=== PATIENT | male | born 1940 | race Caucasian/White ===

== ENCOUNTER 2018-02-18 10:09 | Outpatient (CLI) | payer MEDICARE, OTHER ==
--- NOTE | 2018-02-18 12:19 | RAD ---
BARIUM SWALLOW ESOPHAGRAM: HISTORY: Dysphagia. COMPARISON: None. EXPOSURE: 2.3 minutes 13.924 Gy per cm2 FINDINGS: Initial psychometrist chest radiograph demonstrates sternotomy wires. There is slight elongation of the aort a. Normal cardiac silhouette. The pulmonary vessels and hilum are normal. The costophrenic angles are clear. No mass. No consolidation. No pneumothorax or osseous abnormalities. The cervical esophagus has an overall normal course and caliber. In the mid portion of the thoracic esophagus, there is a small esophageal diverticulum. No significa nt barium retention in the diverticulum. No evidence of reflux during intermittent fluoroscopy. IMPRESSION: Mid thoracic esophageal diverticulum. POS: [facility]
== END 2018-02-18 10:10 | disposition home or self-care (01) ==
LOC: RAD 10:09
PROVIDERS: ATTEND Otolaryngology Plastic Surgery within the Head & Neck
DX: R13.13 Dysphagia, pharyngeal phase (principal); K22.5 Diverticulum of esophagus, acquired
CPT/HCPCS: 74220

== ENCOUNTER 2018-05-04 15:06 | Outpatient (CLI) | payer MEDICARE, OTHER ==
[2018-05-04 15:59] LABS: #Basophils 0.1 thou/uL (0.0-0.2); #Eosinphils 0.3 thou/uL (0.0-0.7); #Lymphocytes 3.1 thou/uL (1.20-3.40); #Monocytes 0.7 thou/uL (0.11-0.59); #Neutrophils 3.9 thou/uL (1.40-6.50); %Basophils 1.3 % (0.0-1.0); %Eosinophils 3.2 % (0.0-10.0); %Lymphocytes 38.8 % (21.0-51.0); %Monocytes 8.3 % (0.0-10.0); %Neutrophils 48.4 % (42.0-75.0); Hemoglobin 14.4 g/dL (14.0-18.0); Mean Corpuscular HGB CONC 32.8 g/dL (32.0-36.0); Mean Corpuscular Volume 91.5 fL (78.0-98.0); Mean Platelet Volume 7.3 fL (7.4-10.4); Platelet Count 281 thou/uL (130-400); RBC Distribution Width 12.5 % (11.5-14.5); Red Blood Cell (RBC) Count 4.82 mill/uL (4.70-6.10); White Blood Cell (WBC) Count 8.1 thou/uL (4.8-10.8)
[2018-05-04 16:20] LABS: Anion Gap 9 mmol/L (10-20); BUN (Urea Nitrogen) 20 mg/dL (8.4-25.7); Calc. Creatinine Clearance 0 mL/min (70-130); Calcium 9.7 mg/dL (7.8-10.44); Carbon Dioxide 30 mmol/L (23-31); Chloride 105 mmol/L (98-107); Estimated GFR-MDRD 66; Glucose 115 mg/dL (83-110); Potassium 4.3 mmol/L (3.5-5.1); Sodium 140 mmol/L (136-145)
--- NOTE | 2018-05-05 07:37 | EKG ---
Test Reason : Blood Pressure : / mmHG Vent. Rate : 059 BPM Atrial Rate : 059 BPM P-R Int : 194 ms QRS Dur : 084 ms QT Int : 426 ms P-R-T Axes : 053 -13 023 degrees QTc Int : 421 ms Sinus bradycardia Low voltage QRS Cannot rule out Anterior infarct , age undetermined Poor anterior R wave progression Abnormal ECG When compared with ECG of 05-JUN-2016 07:58, Minimal criteria for Anterior infarct are now Present No significant change was found Confirmed by DR. Venus NG ([id number]) on 05/05/2018 7:37:53 AM Referred By: KATHI Confirmed By:DR. Venus NG
== END 2018-05-04 15:07 | disposition home or self-care (01) ==
LOC: LABBT 15:06
PROVIDERS: ATTEND Orthopaedic Surgery
DX: Z01.818 Encounter for other preprocedural examination (principal); S46.211A Strain of muscle, fascia and tendon of other parts of biceps, right arm, initial encounter
CPT/HCPCS: 80048; 85025; 93005; 93010

== ENCOUNTER 2018-05-07 08:33 | Day surgery (SDC) | payer MEDICARE, OTHER ==
[2018-05-04 15:27] VITALS: BMI 29.5
[2018-05-07] MEDS ORDERED: CEFAZOLIN 2 GM/50 ML BAG ONE (09:06)
[2018-05-07] MEDS ORDERED: Lidocaine 1% (PF) 30 ML VIAL ONE (09:32)
[2018-05-07] MEDS ORDERED: Fentanyl 100 MCG/2 ML VIAL ONE (09:32)
[2018-05-07] MEDS ORDERED: Midazolam HCl 2 mg/2 ml Vial ONE (09:32)
[2018-05-07] MEDS ORDERED: Bupivacaine HCl 0.5%/Epinephrine 1:200,000/PF 30 ml Vial ONE (09:41)
[2018-05-07] MEDS ORDERED: ePHEDrine/0.9% NaCl/PF SYRINGE 50 mg/10 ml ONE (10:23)
[2018-05-07] MEDS ORDERED: Dexamethasone 20 MG/5 ML VIAL ONE (10:23)
[2018-05-07] MEDS ORDERED: PHENYLEPHRINE-NS 100 MCG/ML 10 ML SYRINGE ONE (10:23)
[2018-05-07] MEDS ORDERED: Ondansetron PF 4 MG/2 ML Vial ONE (10:23)
[2018-05-07] MEDS ORDERED: PROPOFOL 200 MG/20 ML VIAL ONE (10:23)
--- NOTE | 2018-05-07 12:35 | OP ---
DATE OF PROCEDURE: 05/07/2018 PREOPERATIVE DIAGNOSIS: Right distal biceps rupture. POSTOPERATIVE DIAGNOSIS: Right distal biceps rupture. SURGEON: Mich Singh M.D. ANESTHESIA: General. BLOOD LOSS: Minimal. SPECIMEN: None. DRAINS: None. COMPLICATIONS: None. TOURNIQUET TIME: 37 minutes. PROCEDURE IN DETAIL: The patient was taken to the operating where general anesthesia was induced. R ight arm was prepped and draped in the usual sterile fashion. After exsanguination, tourniquet was i nflated to 300 mmHg. I made a standard antecubital incision. Dissection was carried down to the [facility]. I found the tendon with some difficulty due to previous retraction. Tendon was prepared for in sertion. Size found to be a size 8. I prepared it with a FiberWire suture in a running SynthorxckSabrix [facility] ion, identified the radial tubercle, freed of soft tissue, placed a 4.5 drill hole across it. Drille d one cortex 8 mm, which was the size of the tendon. Irrigation performed. The Endobutton device wa s passed through the 4.5 mm hole. The tendon was delivered down into the defect. I then tied the biswas tures over the button and then sutured back to the tendon and tied back through the tendon for double repair. Tourniquet was released. Hemostasis was obtained. Irrigation performed. Subcutaneous tis delores closed with 2-0 Vicryl. The skin was closed with cassidy. Sterile dressings applied. The patie nt was placed in a splint. There were no complications.
== END 2018-05-07 13:40 | disposition home or self-care (01) ==
LOC: SDC 08:33
PROVIDERS: ATTEND Orthopaedic Surgery
PROC: 0LM30ZZ Reattachment of Right Upper Arm Tendon, Open Approach (ICD-10-PCS; principal; 2018-05-07)
DX: S46.211A Strain of muscle, fascia and tendon of other parts of biceps, right arm, initial encounter (principal); I10 Essential (primary) hypertension; E78.5 Hyperlipidemia, unspecified; Z87.891 Personal history of nicotine dependence; Z79.82 Long term (current) use of aspirin; Z79.899 Other long term (current) drug therapy; Z95.1 Presence of aortocoronary bypass graft; W20.8XXA Other cause of strike by thrown, projected or falling object, initial encounter
CPT/HCPCS: 24342; C1713; J0670; J1100; J2001; J2250; J2405; J2704; J3010

== ENCOUNTER 2018-09-01 02:10 | Observation (INO) | payer MEDICARE, OTHER ==
[2018-09-01 02:34] LABS: #Basophils 0.1 thou/uL (0.0-0.2); #Eosinphils 0.4 thou/uL (0.0-0.7); #Lymphocytes 4.4 thou/uL (1.20-3.40); #Monocytes 0.6 thou/uL (0.11-0.59); #Neutrophils 3.8 thou/uL (1.40-6.50); %Basophils 0.7 % (0.0-1.0); %Eosinophils 4.5 % (0.0-10.0); %Lymphocytes 47.5 % (21.0-51.0); %Monocytes 6.6 % (0.0-10.0); %Neutrophils 40.7 % (42.0-75.0); Hemoglobin 15.1 g/dL (14.0-18.0); Mean Corpuscular HGB CONC 33.5 g/dL (32.0-36.0); Mean Corpuscular Hemoglobin 30.7 pg (27.0-31.0); Mean Corpuscular Volume 91.7 fL (78.0-98.0); Mean Platelet Volume 7.2 fL (7.4-10.4); Platelet Count 281 thou/uL (130-400); RBC Distribution Width 12.5 % (11.5-14.5); Red Blood Cell (RBC) Count 4.92 mill/uL (4.70-6.10); White Blood Cell (WBC) Count 9.3 thou/uL (4.8-10.8)
[2018-09-01 02:53] LABS: ALT (SGPT) 14 U/L (8-55); AST (SGOT) 19 U/L (5-34); Albumin 3.9 g/dL (3.4-4.8); Alkaline Phosphatase 111 U/L (40-150); Anion Gap 15 mmol/L (10-20); BUN (Urea Nitrogen) 17 mg/dL (8.4-25.7); Bilirubin, Total 0.5 mg/dL (0.2-1.2); Calc. Creatinine Clearance 0 mL/min (70-130); Carbon Dioxide 25 mmol/L (23-31); Chloride 104 mmol/L (98-107); Estimated GFR-MDRD 56; Globulin 3.4 g/dL (2.4-3.5); Glucose 145 mg/dL (83-110); Lipase 14 U/L (8-78); Potassium 3.8 mmol/L (3.5-5.1); Protein, Total 7.3 g/dL (5.8-8.1); Sodium 140 mmol/L (136-145)
[2018-09-01] MEDS ORDERED: Fentanyl 100 MCG/2 ML VIAL ONE (03:30)
[2018-09-01] MEDS ORDERED: Famotidine/PF 20 mg/2ml Vial ONE (05:08)
[2018-09-01] MEDS ORDERED: Morphine 4 MG/ML VIAL ONE (05:41)
[2018-09-01 05:49] LABS: Troponin I Less than 0.010 ng/mL (< 0.028)
[2018-09-01] MEDS ORDERED: Ondansetron PF 4 MG/2 ML Vial ONE (05:50)
--- NOTE | 2018-09-01 08:12 | RAD ---
CHEST 1 VIEW: HISTORY: Chest pain. COMPARISON: Radiograph from 2014. FINDINGS: There is some scarring in the left lung base. No pneumothorax. No large effusion. No focal airspac e consolidation. Heart size is mildly enlarged. Mild atelectasis in lung bases. IMPRESSION: No acute intrathoracic abnormality. POS: [facility]
[2018-09-01] MEDS ORDERED: Acetaminophen 325 MG TAB PO PRN (09:00)
[2018-09-01] MEDS ORDERED: Ondansetron PF 4 MG/2 ML Vial IVP PRN (09:00)
[2018-09-01] MEDS ORDERED: Ondansetron ODT 4 MG TAB PO PRN (09:00)
[2018-09-01 09:09] LABS: Troponin I Less than 0.010 ng/mL (< 0.028)
--- NOTE | 2018-09-01 10:26 | HP ---
PRIMARY CARE PHYSICIAN: Dr. Andrzej Minor. CHIEF COMPLAINT: Substernal chest pain. HISTORY OF PRESENT ILLNESS: Mr. Lema is a pleasant 78-year-old male with past medical history of coronary artery disease status post CABG 18 years ago, hypertension, hyperlipidemia, history of colon cancer with recurrent enlarged prostate with possible prostate cancer, who had presented to [facility] after he had developed substernal chest pain yesterday morning after making breakfast. He states substernal chest pain is pretty consistent and had not noticed any changes with rest or activity. After breakfast yesterday, he had gone out and fed the cows and came back in the house to rest, he states he had woken up from a nap and had noticed the pain worsened. Therefore, he had drove himself to the hospital for further evaluation. Upon arrival to [facility], he has still pain in substernal area, he was treated with IV Zofran, morphine, famotidine, and fentanyl. However, he had noticed little symptomatic relief from this regimen. EKG displayed no acute changes. Chest x-ray revealed no acute cardiopulmonary process at this time. His initial lab work demonstrated troponin less than 0.010 x2, he was accompanied with his at bedside. He had denied any fever, chills, any lightheadedness, or any dizziness. He had denied any shortness of breath, any nausea or vomiting, any pain in his upper or lower extremities; however, he did notice a slight weakness in his right upper arm due to a recent biceps tear and a surgical repair, but otherwise denies any other complaints. The patient had also mentioned that he had undergone a prior endoscopy, which had found precancerous cells. Therefore, he was referred out to [place] for further evaluation, he had stated that his last endoscopy was back in February and he has a followup next month for repeat endoscopy. On prior endoscopy, he had also displayed chronic inactive gastritis, but otherwise unremarkable. It was determined the patient be admitted under observation and seek further cardiac workup for rule out of his chest pain. REVIEW OF SYSTEMS: All other systems reviewed and found to be negative unless mentioned in HPI. PAST MEDICAL HISTORY: Significant for CAD status post CABG; hypertension; hyperlipidemia; history of colon cancer; enlarged prostate with possible prostate cancer, which he is undergoing further workup with Dr. Oviedo for. PAST SURGERY HISTORY: Coronary artery bypass graft, colon resection, hernia surgery, right knee surgery, tooth extraction, and right biceps repair. PSYCHIATRIC HISTORY: Denies any previous psychiatric history at this time. SOCIAL HISTORY: The patient reports drinking socially, however, denies any tobacco or illicit drug use. FAMILY HISTORY: Denies any family history that is significant at this time. KNOWN ALLERGIES: None. CURRENT HOME MEDICATIONS: 1. Metoprolol 50 mg oral b.i.d. 2. Cialis 5 mg oral once daily. 3. Flomax 0.4 mg oral once daily. 4. Atorvastatin 80 mg oral once daily. 5. Aspirin 81 mg once daily. PHYSICAL EXAMINATION: VITAL SIGNS: BP 166/89, pulse 70, respirations 17, temperature 98.2 degrees Fahrenheit, and O2 saturations 95% on room air. GENERAL: The patient is awake, alert, and oriented x3. No acute distress noted. HEENT: Atraumatic and normocephalic. Pupils are round and reactive to light. Extraocular muscles are intact. Moist mucous membranes noted. NECK: No JVD. No bruit noted. Trachea, midline. CARDIOVASCULAR: Positive S1 and S2. Regular rate and rhythm. No murmur auscultated. RESPIRATORY: Clear to auscultation bilaterally. No wheezes, rales, or rhonchi. ABDOMEN: Soft, mild tenderness in the left upper quadrant, otherwise unremarkable, nondistended. Bowel sounds present. MUSCULOSKELETAL: Strength 5+ bilaterally in upper and lower extremities. Moves all extremities equal. No edema noted. No calf tenderness. NEUROLOGIC: Cranial nerves 2 through 12 are grossly intact. No focal deficits noted. Speech intact and normal. Gait not assessed. PSYCHIATRIC: Good mood and affect. LABORATORY DATA: WBC 9.3, RBC 4.92, hemoglobin 15.1, platelets 281. Sodium 140, potassium 3.8, carbon dioxide 25, anion gap 15, BUN 17, creatinine 1.26, estimated GFR 56, glucose 145, AST 19, ALT 14, alkaline phosphatase 111. Troponin less than 0.010 x2. Lipase 14. DIAGNOSTIC IMAGING: Chest x-ray showed no acute cardiopulmonary process. ASSESSMENT AND PLAN: 1. Substernal chest pain, we will rule out cardiac etiology, stress test and echocardiogram ordered. Third set of cardiac enzymes is also pending, so far cardiac enzymes are negative x2. 2. History of chronic inactive gastritis. We will place the patient on IV Protonix b.i.d. as this may also be causing his pain. 3. Hypertension. Monitor vital signs closely. Continue on the patient's home regimen. 4. Hyperlipidemia. Continue on the patient's home regimen, recheck lipids in the morning. 5. Enlarged prostate, continue on the patient's Flomax for now. The patient will have followup with Dr. Oviedo, who is working him up for possible prostate cancer, no further workup needed during his hospital stay and the patient will follow up with Dr. Oviedo as an outpatient. 6. Deep venous thrombosis and gastrointestinal prophylaxis. 7. Code status, full code. DISPOSITION: Pending further workup and clinical findings. Job ID: [id number]
[2018-09-01 14:30] VITALS: BMI 30.2
--- NOTE | 2018-09-01 15:30 | NM ---
RADIONUCLIDE STRESS AND REST MYOCARDIAL PERFUSION SCAN AND SPECT IMAGING: LEFT VENTRICULAR WALL MOTION EVALUATION AND EJECTION FRACTION: HISTORY: Chest pain. FINDINGS: Adenosine protocol. There is homogeneous uptake of radiotracer throughout the left ventricular myocardium. No focal perf usion defect or reversibility. QGS analysis of gated SPECT images shows no focal wall motion abnorma lities. Ejection fraction is calculated at 71%. IMPRESSION: Normal myocardial perfusion scan. Normal left ventricular ejection fraction. POS: [facility]
[2018-09-01] MEDS ORDERED: ADENOSINE 60 MG/20 ML VIAL ONE (16:30)
[2018-09-01] MEDS: Metoprolol Tartrate 25 MG TAB PO SCH (20:36)
[2018-09-01] MEDS: Enoxaparin Sodium 40 MG/0.4 ML SYRINGE SC SCH (20:39)
[2018-09-01] MEDS ORDERED: Pantoprazole 40 MG VIAL IVP SCH (21:00)
[2018-09-01] MEDS ORDERED: Tamsulosin HCl 0.4 MG CAP PO SCH (21:00)
[2018-09-01] MEDS ORDERED: Atorvastatin Calcium 40 MG TAB PO SCH (21:00)
[2018-09-02 06:49] LABS: #Eosinphils 0.2 thou/uL (0.0-0.7); #Lymphocytes 3.2 thou/uL (1.20-3.40); #Monocytes 0.7 thou/uL (0.11-0.59); #Neutrophils 5.3 thou/uL (1.40-6.50); %Basophils 0.4 % (0.0-1.0); %Eosinophils 2.6 % (0.0-10.0); %Lymphocytes 33.6 % (21.0-51.0); %Monocytes 7.8 % (0.0-10.0); %Neutrophils 55.7 % (42.0-75.0); Hemoglobin 14.2 g/dL (14.0-18.0); Mean Corpuscular HGB CONC 33.1 g/dL (32.0-36.0); Mean Corpuscular Hemoglobin 29.8 pg (27.0-31.0); Mean Corpuscular Volume 90.2 fL (78.0-98.0); Mean Platelet Volume 7.6 fL (7.4-10.4); Platelet Count 262 thou/uL (130-400); RBC Distribution Width 12.7 % (11.5-14.5); Red Blood Cell (RBC) Count 4.75 mill/uL (4.70-6.10); White Blood Cell (WBC) Count 9.6 thou/uL (4.8-10.8)
[2018-09-02 07:14] LABS: Anion Gap 10 mmol/L (10-20); BUN (Urea Nitrogen) 17 mg/dL (8.4-25.7); Calc. Creatinine Clearance 76 mL/min (70-130); Calcium 9.2 mg/dL (7.8-10.44); Carbon Dioxide 26 mmol/L (23-31); Cardiac Risk 3.1 (Less than 4.5); Chloride 103 mmol/L (98-107); Cholesterol 110 mg/dl (< 200 Desired); Estimated GFR-MDRD 66; Glucose 122 mg/dL (83-110); HDL Cholesterol 36 mg/dL (>60 Neg Risk); LDL Cholesterol, Calculated 56 mg/dL; Potassium 3.8 mmol/L (3.5-5.1); Sodium 135 mmol/L (136-145); Triglycerides 91 mg/dL (Less than 150)
[2018-09-02 08:37] VITALS: BP 98/60
[2018-09-02 08:57] VITALS: TEMP 97.6
[2018-09-02] MEDS ORDERED: Tamsulosin HCl 0.4 MG CAP PO SCH (09:00)
[2018-09-02] MEDS ORDERED: Aspirin 81 mg Enteric Coated Tablet PO SCH (09:00)
[2018-09-02] MEDS: Metoprolol Tartrate 25 MG TAB PO SCH ×2 (09:11→09:16)
[2018-09-02] MEDS: Enoxaparin Sodium 40 MG/0.4 ML SYRINGE SC SCH (09:11)
--- NOTE | 2018-09-02 09:19 | PDOC.EVN ---
Event Note - Event Note Event Note: presented with burning epigastric pain, cardiorespiratory exam normal. MCCAIN neg gor ischemic CAD. agree with discharge plans
== END 2018-09-02 11:08 | disposition home or self-care (01) ==
LOC: ERS 02:10 → ERHOLD 03:18 → 2SW 03:28
PROVIDERS: ADMIT Hospitalist; ATTEND Hospitalist
DX: R07.2 Precordial pain (principal); K29.50 Unspecified chronic gastritis without bleeding; I25.10 Atherosclerotic heart disease of native coronary artery without angina pectoris; E78.5 Hyperlipidemia, unspecified; I10 Essential (primary) hypertension; Z79.82 Long term (current) use of aspirin; Z79.899 Other long term (current) drug therapy; Z95.1 Presence of aortocoronary bypass graft; Z90.49 Acquired absence of other specified parts of digestive tract
CPT/HCPCS: 71045; 78452; 80048; 80053; 80061; 83690; 84484 ×2; 85025 ×2; 93005; 93017; 93306; 94760; 96374; 96375; 99285; 99406; A9500; G0378 ×2; 36415; J0153; J1650; J2270; J2405; J3010; S0028

== ENCOUNTER 2018-09-29 08:53 | Outpatient (CLI) | payer MEDICARE, OTHER ==
[2018-09-29] MEDS ORDERED: Gadobenate Dimeglumine 529 MG/1 ML (20ML VIAL) ONE (09:28)
--- NOTE | 2018-09-29 12:32 | MRI ---
MRI PELVIS/PROSTATE WITHOUT AND WITH CONTRAST: History: Elevated PSA. Abnormal digital rectal exam. Technique: Multiplanar, multisequence MR images were obtained of the prostate gland with IV contrast. This exam was evaluated on a [employer] workstation. FINDINGS: There is enlargement of the central brain consistent with moderate BPH. No suspicious low T2 signal l esion is seen within the central gland or peripheral zone of the prostate. No low signal is seen on t he ADC map and there is no restricted diffusion within the peripheral zone of the prostate. The neural vascular bundles and seminal vesicles are intact. No pelvic adenopathy is seen. There is a heterogeneous appearance of the marrow on the T1 images which is nonspecific. The heteroge neous appearance of the marrow does not appear mass like. IMPRESSION: PIRADS category 2 - low likelihood that a clinically significant cancer is present. POS: [facility]
== END 2018-09-29 08:54 | disposition home or self-care (01) ==
LOC: TBSIIMAG 08:53
PROVIDERS: ATTEND Urology
DX: R97.20 Elevated prostate specific antigen [PSA] (principal); R68.89 Other general symptoms and signs; N40.1 Benign prostatic hyperplasia with lower urinary tract symptoms; R35.1 Nocturia; Z87.898 Personal history of other specified conditions
CPT/HCPCS: 72197; 82565; A9577

== ENCOUNTER 2018-10-08 16:51 | Inpatient (IN) | payer MEDICARE, OTHER ==
[~2018-10-08 16:51] MED LIST: ISOVUE-370 76%-LOCM 1 ML ONE
[2018-10-08 17:27] LABS: #Eosinphils 0.1 thou/uL (0.0-0.7); #Lymphocytes 2.6 thou/uL (1.20-3.40); #Monocytes 0.8 thou/uL (0.11-0.59); #Neutrophils 5.8 thou/uL (1.40-6.50); %Basophils 0.4 % (0.0-1.0); %Eosinophils 1.1 % (0.0-10.0); %Lymphocytes 27.4 % (21.0-51.0); %Monocytes 8.7 % (0.0-10.0); %Neutrophils 62.4 % (42.0-75.0); Hemoglobin 15.9 g/dL (14.0-18.0); Mean Corpuscular HGB CONC 33.2 g/dL (32.0-36.0); Mean Corpuscular Hemoglobin 29.7 pg (27.0-31.0); Mean Corpuscular Volume 89.3 fL (78.0-98.0); Mean Platelet Volume 7.5 fL (7.4-10.4); Platelet Count 285 thou/uL (130-400); RBC Distribution Width 12.9 % (11.5-14.5); Red Blood Cell (RBC) Count 5.36 mill/uL (4.70-6.10); White Blood Cell (WBC) Count 9.3 thou/uL (4.8-10.8)
[2018-10-08 17:47] LABS: ALT (SGPT) 330 U/L (8-55); AST (SGOT) 124 U/L (5-34); Albumin 3.9 g/dL (3.4-4.8); Alkaline Phosphatase 245 U/L (40-150); Anion Gap 15 mmol/L (10-20); BUN (Urea Nitrogen) 15 mg/dL (8.4-25.7); Bilirubin, Total 1.7 mg/dL (0.2-1.2); Calc. Creatinine Clearance 0 mL/min (70-130); Carbon Dioxide 25 mmol/L (23-31); Chloride 102 mmol/L (98-107); Estimated GFR-MDRD 70; Globulin 3.4 g/dL (2.4-3.5); Glucose 100 mg/dL (83-110); Potassium 3.8 mmol/L (3.5-5.1); Protein, Total 7.3 g/dL (5.8-8.1); Sodium 138 mmol/L (136-145)
--- NOTE | 2018-10-08 17:47 | RAD ---
PORTABLE CHEST ONE VIEW: 10/08/18 at 5:15 p.m. HISTORY: Atrial fibrillation. FINDINGS/IMPRESSION: Comparison is made with the exam of 09/01/18. Changes of median sternotomy again seen. Heart size is prominent. No lobar consolidation, pneumothora araceli, christos pulmonary edema, or large effusions are seen. POS: [facility]
[2018-10-08 18:10] LABS: CKMB 0.6 ng/mL (0-6.6)
--- NOTE | 2018-10-08 18:57 | CT ---
CTA CHEST WITH IV CONTRAST AND 3D POSTPROCESSING CTA ABDOMEN WITH IV CONTRAST AND 3D POSTPROCESSING 10/08/18 HISTORY: Atrial fibrillation. Concern for aortic dissection. FINDINGS: There are vascular calcifications with good opacification of the thoracoaortic abdominal lumen. No in timal flap is seen to suggest dissection. There is a 3.5 cm aneurysm of the infrarenal abdominal aort a. There is narrowing of the origin of the celiac access. There is good flow in the renal arteries, S MA and LUKE. The central pulmonary arteries are well opacified without filling defects to suggest central pulmonar y embolism. No pleural or pericardial effusions are seen. There are dependent changes versus mild infiltrates at the lung bases. No free air or free fluid is seen in the abdomen. There is an 18 mm cyst in the renal cortex. Evaluat ion of solid organs is suboptimal due to imaging during the arterial phase of contrast administration . No calcified gallstones are seen. There is a 3.2 cm low density mass in the tail of the pancreas. T here are degenerative changes in the spine. IMPRESSION: 1. No CT evidence of aortic dissection. 2. 3.5 cm infrarenal abdominal aortic aneurysm. 3. Right renal cyst. 4. 3.2 cm hypodense mass in the tail of the pancreas. This should be evaluated with an endoscopi c ultrasound. CODE T POS: [facility]
[2018-10-08] MEDS ORDERED: Enoxaparin Sodium 100 MG/ML SYRINGE ONE (19:37)
[2018-10-08] MEDS ORDERED: Aspirin Chewable 81 MG TAB ONE (19:38)
--- NOTE | 2018-10-08 20:19 | ULT ---
GALLBLADDER ULTRASOUND: 10/08/18 HISTORY: Right upper quadrant pain. FINDINGS: The liver demonstrates homogeneous echotexture without focal mass or intrahepatic ductal dilatation. The visualized portions of the pancreas are unremarkable. No shadowing gallstones are seen. There is gallbladder wall thickening measuring 1 cm with echogenic sludge within the gallbladder. No right si ded hydronephrosis seen. There is a 1.4 cm right renal cyst. No free fluid is seen in Ortiz's mitchell ch. IMPRESSION: 1. Gallbladder sludge with wall thickening. 2. Small right renal cyst. POS: [facility]
[2018-10-08 21:02] LABS: Troponin I 0.022 ng/mL (< 0.028)
[2018-10-08] MEDS ORDERED: Piperacillin/Tazobactam 3.375 GM VIAL ONE (22:22)
[2018-10-08] MEDS ORDERED: Metoprolol Tartrate 25 MG TAB PO SCH (22:30)
[2018-10-09 00:22] LABS: Troponin I 0.014 ng/mL (< 0.028)
--- NOTE | 2018-10-09 02:11 | HP ---
CHIEF COMPLAINT: Abdominal pain, atrial fibrillation. HISTORY OF PRESENT ILLNESS: This patient is a 78-year-old male, who was actually just admitted here on September 01 with an episode of chest pain. At that time, the patient ruled out for myocardial injury, had a nuclear medicine stress test which was normal and an echocardiogram which showed an ejection fraction of 55% to 60%, mild MR, aortic valve sclerosis, mild TR, otherwise normal. The patient was felt possibly to have some reflux related disease and was started on Protonix and discharged to home. The patient was remaining very active and has been building fence for the last 2 weeks. He said on Friday, however, which was 2 days ago he started experiencing some abdominal pain, which was not terribly dissimilar from the pain he had on September 01 where he was worked up from a cardiac perspective. He reports that after eating around 5 in the evening, he had abdominal pain and distention starting in the middle of his abdomen and then moved more cephalad to the epigastric area. He took Tums with no relief, then hydrocodone after an hour, then another and then Protonix and ultimately 3rd hydrocodone and around midnight, he became more comfortable. On Friday, he said he did not do a whole lot, just stayed around the house throughout the day yesterday, although his notes that he did have a temperature of 100.5 and he had some night sweats. Today, he felt more distended again and he has been experiencing some what he describes as a "twisting" pain in the right lateral upper abdomen. He states this was positional and sometimes related to breathing, but was very brief and intermittent. Currently, his pain has completely resolved with this. He denies any nausea, but he has had decreased appetite and his reports that he has lost probably 5-10 pounds in the last couple of weeks. He has continued to have normal bowel movements through all of this. Today, the patient had a followup appointment with Dr. Minor, his PCP when he presented there. He was reporting his symptoms. On exam, Dr. Minor noted that the patient was in atrial fibrillation, did an EKG to confirm. He also thought he might have heard some rales in the bases of his lungs. He tried to get the patient directly admitted, but due to lack of bed availability, ultimately referred him to the emergency department. The patient was then sent to imaging for evaluation of his abdominal pain. While there, he had an antecubital IV started and he subsequently had syncopal episode. He is convinced that it was related to the IV as he states he has always had a propensity to do this with needles. The patient does report over the past week in general, he has had more fatigue and significantly decreased stamina, but has denied any specific chest pains. REVIEW OF SYSTEMS: All systems were reviewed and all pertinent positives and negatives noted in the history of present illness. PAST MEDICAL HISTORY: Notable for coronary artery disease, status post five vessel CABG, hypertension, hyperlipidemia, history of colon cancer, prostate enlargement with a lesion which is associated with a slow increase of his PSA from 6 to 10 over the last several years. He is followed by Dr. Oviedo and she has recommended a biopsy, however, he is relatively reluctant to do that at this point. PAST SURGICAL HISTORY: The above mentioned bypass. He has had a colon resection for colon cancer, hernia surgery, right knee surgery, tooth extraction, and right biceps tendon repair. SOCIAL HISTORY: Social drinker. Denies tobacco or drugs. He is . He is full code and his is his surrogate decision maker. FAMILY HISTORY: Denies any significant family history relative to this admission. ALLERGIES: NONE. CURRENT MEDICATIONS: 1. Metoprolol 50 mg p.o. b.i.d. 2. Cialis 5 mg daily. 3. Flomax 0.4 mg daily. 4. Atorvastatin 80 mg daily. 5. Aspirin 81 mg daily. PHYSICAL EXAMINATION: VITAL SIGNS: In the emergency department, initially, his BP was 105/77, pulse 107, respirations 20, temperature 97.5, O2 saturation 96% on room air. He subsequently did have a drop to 80/58 with pulse of 100, presumably around the time of his syncopal episode. Most recent vitals, BP 125/71, pulse 88, respirations 18, O2 saturation 100% on 2 L. GENERAL APPEARANCE: Age-appropriate male. He is awake, alert, oriented, very pleasant, and cooperative. He is in no distress. HEENT: Pupils are equal and reactive. He has extraocular lens implants noted. No OP lesions. NECK: Supple and symmetric with no lymphadenopathy. HEART: Irregularly irregular with no murmurs. LUNGS: Clear bilaterally with a hint of rale in the right base, otherwise good air exchange. ABDOMEN: Soft, nontender, and nondistended. Hyperactive bowel sounds. No masses and no organomegaly. EXTREMITIES: Have no cyanosis, clubbing, or edema. SKIN: Warm and dry. NEURO: The patient is fully intact with no focal deficits. PSYCH: The patient has normal affect and behavior. LABORATORY RESULTS: White count 9.3, hemoglobin 15.9, platelets 285. Sodium 138, potassium 3.8, chloride 102, BUN 15, creatinine is 1.03, glucose 100, total bilirubin 1.7, AST 124, ALT is 330, alkaline phosphatase 245. Troponin 0.031, subsequent 0.022. Chest x-ray shows no acute cardiopulmonary processes. CT chest dissection protocol shows no evidence of dissection. There is a 3.5 cm infrarenal abdominal aortic aneurysm, right renal cyst, and a 3.2 cm hypodense mass in the tail of the pancreas with recommendations for endoscopic ultrasound evaluation. Abdominal ultrasound reveals gallbladder sludge with wall thickening up to 1 cm and small right renal cyst. IMPRESSION AND PLAN: 1. Abdominal pain. The patient had previous cardiac evaluation which was essentially negative. Today, he has elevated liver enzymes and bilirubin, as well as evidence of cholecystitis with gallbladder wall thickening and sludge. This appears consistent with cholecystitis with the only complicating factor being that the patient had an ampulla precancerous lesion which was endoscopically removed in [place] and had a recent biopsy obtained on October 01, which could have led to some infection of the gallbladder, it is also complicated by the fact that he has no pain or tenderness at the moment and his exam is completely benign and furthermore by the fact that he has a newly found lesion in the tail of the pancreas and lastly complicated by the fact that he also has new onset atrial fibrillation. We will start him on some Zosyn given his recent instrumentation. We will also consult surgery and GI to help resolve this situation diagnostically. 2. New onset atrial fibrillation. The patient appears to have good rate control. He received Lovenox in the emergency department at 100 mg. we will not continue anticoagulation at this time until we have some clarity regarding the potential need for surgery. So far, he has good rate control. He takes beta blockers at home, which we will continue. 3. Pancreatic hypodense mass. The patient and his are unaware of this being present previously. He will need further evaluation. Fortunately, his lipase is only 6. 4. Syncopal episode, I do believe the patient likely did in fact have a vagal episode in response to the IV being started of course he has the new onset atrial fibrillation complicating that as well. We will keep him on a monitor. We will continue to check serial troponins. 5. Elevated troponin, certainly very indeterminate and likely insignificant, especially in light of the fact that his repeat is within the normal range. 6. History of coronary artery disease. The patient has some risk of arrhythmia other than atrial fibrillation. Because of this history, again, we will keep him on the monitor and continue his metoprolol. 7. Benign prostatic hyperplasia with prostate lesion, followed by Dr. Oviedo. We will hold off on the Flomax for now given his syncopal episode. 8. History of hyperlipidemia. Continue with his atorvastatin. 9. History of some reflux esophagitis. Continue with the PPI. Job ID: [id number]
[2018-10-09 02:40] LABS: #Basophils 0.1 thou/uL (0.0-0.2); #Eosinphils 0.1 thou/uL (0.0-0.7); #Lymphocytes 2.5 thou/uL (1.20-3.40); #Monocytes 0.7 thou/uL (0.11-0.59); #Neutrophils 4.3 thou/uL (1.40-6.50); %Basophils 1.3 % (0.0-1.0); %Eosinophils 1.9 % (0.0-10.0); %Lymphocytes 32.8 % (21.0-51.0); %Monocytes 8.4 % (0.0-10.0); %Neutrophils 55.6 % (42.0-75.0); Mean Corpuscular HGB CONC 32.9 g/dL (32.0-36.0); Mean Corpuscular Hemoglobin 30.3 pg (27.0-31.0); Mean Corpuscular Volume 91.8 fL (78.0-98.0); Mean Platelet Volume 7.4 fL (7.4-10.4); Platelet Count 259 thou/uL (130-400); RBC Distribution Width 12.8 % (11.5-14.5); Red Blood Cell (RBC) Count 4.61 mill/uL (4.70-6.10); White Blood Cell (WBC) Count 7.7 thou/uL (4.8-10.8)
[2018-10-09 03:07] LABS: Troponin I Less than 0.010 ng/mL (< 0.028)
[2018-10-09 03:20] LABS: ALT (SGPT) 224 U/L (8-55); AST (SGOT) 63 U/L (5-34); Albumin 3.2 g/dL (3.4-4.8); Alkaline Phosphatase 180 U/L (40-150); Anion Gap 13 mmol/L (10-20); BUN (Urea Nitrogen) 17 mg/dL (8.4-25.7); Bilirubin, Total 0.9 mg/dL (0.2-1.2); Calc. Creatinine Clearance 84 mL/min (70-130); Carbon Dioxide 21 mmol/L (23-31); Chloride 107 mmol/L (98-107); Estimated GFR-MDRD 76; Globulin 2.8 g/dL (2.4-3.5); Glucose 152 mg/dL (83-110); Potassium 3.7 mmol/L (3.5-5.1); Sodium 137 mmol/L (136-145)
[2018-10-09] MEDS ORDERED: Sodium Chloride 0.9% 100 ML ONE (05:16)
[2018-10-09] MEDS ORDERED: Piperacillin/Tazobactam 3.375 GM VIAL ONE (05:16)
[2018-10-09] MEDS: Piperacillin/Tazobactam 3.375 GM in Sodium Chloride 0.9% 100 ML IVPB SCH ×4 (05:29→21:30)
[2018-10-09 10:05] VITALS: BMI 28.6
[2018-10-09] MEDS: Metoprolol Tartrate 25 MG TAB PO SCH ×2 (10:40→21:26)
[2018-10-09] MEDS: Pantoprazole 40 MG VIAL IVP SCH ×2 (10:41→21:28)
[2018-10-09] MEDS: Aspirin 81 mg Enteric Coated Tablet PO SCH (10:41)
[2018-10-09] MEDS: Sodium Chloride 0.9% 10 ML ONE ×2 (10:47→21:31)
--- NOTE | 2018-10-09 11:20 | PDOC.PN ---
- Subjective Encounter Start Date: 10/09/18 Encounter Start Time: 11:19 Patient seen and examined, all questions answered. - Objective Resuscitation Status - Order Detail: 10/08/18 22:01 Resuscitation Status Routine Resuscitation Status: FULL: Full Resuscitation Vital Signs & Weight: Vital Signs (12 hours) Temp Pulse Resp BP Pulse Ox 10/09/18 09:35 98.2 F 62 18 141/77 H 95 10/09/18 08:00 97.4 F L 62 14 128/75 99 10/09/18 04:42 98.2 F 10/09/18 04:41 65 17 109/64 98 10/09/18 00:00 100 10/08/18 23:37 98.7 F 64 14 98/65 100 Weight Weight 193 lb 12.8 oz Result Diagrams: 10/09/18 02:33 10/09/18 02:33 Additional Labs: Accuchecks 10/08/18 17:36 POC Glucose 104 Phys Exam - Physical Examination Constitutional: NAD HEENT: PERRLA, moist MMs, sclera anicteric Neck: no nodes, no JVD, supple Respiratory: no wheezing, no rales, no rhonchi Cardiovascular: RRR, no significant murmur, no rub Gastrointestinal: soft, non-tender, no distention, positive bowel sounds Musculoskeletal: pulses present, edema present (trace) Dx/Plan (1) Abdominal pain Code(s): R10.9 - UNSPECIFIED ABDOMINAL PAIN Status: Acute (2) Syncope Code(s): R55 - SYNCOPE AND COLLAPSE Status: Acute (3) CAD (coronary artery disease), [place] coronary artery Code(s): I25.10 - ATHSCL HEART DISEASE OF [place] CORONARY ARTERY W/O ANG PCTRS Status: Chronic (4) Hyperlipemia Code(s): E78.5 - HYPERLIPIDEMIA, UNSPECIFIED Status: Chronic (5) Tobacco abuse Code(s): Z72.0 - TOBACCO USE Status: Chronic - Plan * will check CEA, CA 19-9 and PSA * sx and Gi consult pending * no other changes in plan of care * case and plan d/ [facility], he understood and agreed with this plan.
--- NOTE | 2018-10-09 18:56 | CON ---
DATE OF CONSULTATION: HISTORY OF PRESENT ILLNESS: The patient is a 78-year-old male, who came to the emergency room in early August with severe epigastric pain and atrial fibrillation. He was admitted for rule out DC and he got better. He was doing fine until about 3 days ago when after eating, he developed this epigastric pain again, radiated to his chest. No nausea. He said it felt like a twisting pain. He was evaluated by Dr. Minor, found to be in atrial fibrillation, sent to the emergency room. 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 PAST MEDICAL HISTORY: Coronary artery disease, hypertension, hyperlipidemia, colon cancer, benign prostatic hypertrophy, and elevated PSA. PAST SURGICAL HISTORY: He had CABG in 2014, x5. He has had a colon resection many years ago, hernia surgery, knee surgery, tooth extraction, biceps tendon repair. SOCIAL HISTORY: He is . Social alcohol. No tobacco. MEDICATIONS: 1. Metoprolol. 2. Cialis. 3. Flomax. 4. Atorvastatin. 5. Aspirin. FAMILY HISTORY: Noncontributory. PHYSICAL EXAMINATION: VITAL SIGNS: Temperature 98.1, pulse 64, blood pressure 139/76. GENERAL: He is awake, alert, in no apparent distress. HEENT: No jaundice. LUNGS: Clear. HEART: Regular rate and rhythm. ABDOMEN: Soft, nondistended. He has a well-healed surgical scar midline from xiphoid to the pubis. There is very mild tenderness in the mid epigastric and right upper quadrant. No peritoneal signs. No palpable masses. EXTREMITIES: Unremarkable. LABORATORY DATA: His white count 7.7, H and H of 14 and 42, platelet count 259. Electrolytes are fine. His bilirubin is normal. AST mildly elevated at 63, ALT at 224, alkaline phosphatase 180. CT scan showed a 3.5 cm AAA infrarenal. He has also a 3.2 cm mass in the tail of the pancreas. Ultrasound showed sludge in his gallbladder with a thickened gallbladder wall. No gallstones. No sonographic Nunez sign. ASSESSMENT: Epigastric pain, recent ampullary biopsy sludge. No gallstones. Could still be an acalculous cholecystitis. PLAN: Recommend HIDA scan. If noninvasive gallbladder, recommend lap dot. Job ID: [id number]
[2018-10-09] MEDS ORDERED: Dronedarone HCl 400 MG TAB PO SCH (21:00)
[2018-10-09] MEDS: Atorvastatin Calcium 40 MG TAB PO SCH (21:26)
[2018-10-09] MEDS: Acetaminophen 325 MG TAB PO PRN (21:26)
--- NOTE | 2018-10-10 02:55 | CON ---
DATE OF CONSULTATION: PRIMARY CARE DOCTOR: Andrzej Minor M.D. PRIMARY GI DOCTOR: Oscar Nugent M.D. PRIMARY SURGEON: Gabe Alvarez M.D. PRIMARY ANIMAL CARE TAKER: Cipriano Sr M.D. REASON FOR CARDIOLOGY CONSULT: New onset atrial fibrillation with rapid ventricular response. HISTORY OF PRESENT ILLNESS: Mr. Lema is a 78-year-old male with a significant history of coronary artery disease with status post CABG x5 in 2013, colon cancer, BPH, hypertension, hyperlipidemia, and on September 01, the patient presented to emergency department for chest pain, which was a similar symptom prior to the CABG in 2013, and the patient underwent stress test echocardiogram which was within normal range, unremarkable; and so the patient went home with Protonix, and the patient's symptom was well controlled at that time. However, from this Friday and Friday, he started having abdomen pain with dizziness and his stomach was distended. So, he went to see his primary care doctor on due to the abdominal pain, and at the patient's primary care doctor's office, the patient was found to have atrial fibrillation with rapid ventricular response with heart rate 120s to 130s. The patient has had abdomen pain since August. Since then, he had endoscopy with biopsy in [place] which was a precancerous cell, and he had another endoscopy last last week by Dr. Nugent, and he was found to have multiple polyps during the procedure. However, he was told that his symptom is coming from most likely from pancreatitis. He was recommend to have CT scan. At the ER when the IV was inserted, the patient fainted. He denies any dizziness, lightheadedness, or near syncopal episodes prior to this time. He has been in sinus rhythm since 9:40 a.m. this morning. He was already in sinus rhythm when he was transferred to telemetry floor around 9:40 a.m. At this moment, the patient denied any chest pain, heaviness, tightness, palpitation, fluttering in his chest, dizziness, lightheadedness, or any other cardiac complaints. However, the patient's family member has noticed that he was complaining of more fatigue and no energy for almost 1 month. The patient underwent CABG x5 in 2013. The latest stress test was done in August 2018, which shows no ischemia with EF 71%. The patient had echocardiogram done in August 2018, which shows EF 55% to 60%, mild mitral valve regurgitation, and sclerotic aortic valve, and mild tricuspid regurgitation. Today's CT scan shows he has a 3.5 cm infrarenal abdominal aortic aneurysm and right renal cyst and 3.2 cm hypodense mass in pancreas. PAST MEDICAL HISTORY: 1. Coronary artery disease. 2. Hypertension. 3. Hyperlipidemia. 4. Colon cancer. 5. Prostate enlargement with lesion with PSA from 6 to 10 over the last several years. PAST SURGICAL HISTORY: CABG x5 in 2013, colon resection and hernia surgery, right knee surgery, right biceps tendon repair. FAMILY HISTORY: The patient's father has a medical history of COPD and hypertension; and the patient's mother has a medical history of hypertension, hyperlipidemia, diabetes, and carotid endarterectomy. SOCIAL HISTORY: The patient is . The patient is an ex-smoker, he quit in 2013. He drinks 2 to 3 beers a week. 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 ALLERGIES: HE HAS NO KNOWN DRUG ALLERGIES. CURRENT MEDICATIONS: 1. Folic acid. 2. Multivitamin. 3. CoQ10. 4. Atorvastatin 80 mg once a day. 5. Cialis 5 mg once a day. 6. Flomax 0.4 mg once a day. 7. Aspirin 81 mg once a day. 8. Metoprolol succinate 50 mg once a day. 9. Protonix 40 mg twice a day. REVIEW OF SYSTEMS: A 12-point review of systems negative unless otherwise mentioned in the HPI. PHYSICAL EXAMINATION: VITAL SIGNS: Blood pressure 139/76, temperature 98.1, pulse is 64, respiratory rate is 16, O2 sat 95% on room air. GENERAL: The patient is alert and oriented x4, not in acute distress. HEENT: Head, normocephalic and atraumatic. Eyes, extraocular muscle movement intact. ENT and mouth, oral and nasal mucosa moist without lesion. NECK: Supple. Normal range of motion. No JVD. RESPIRATORY: Clear to auscultate bilaterally. No wheezing, rales, or rhonchi noted. CARDIOVASCULAR: Regular rate and rhythm. Normal S1, S2. There is no S3 or S4. No significant murmur, hives, or thrills noted. 2+ pulses in the bilateral upper and lower extremities. No edema in lower extremities. Carotid pulses are present without bruit or thrill. ABDOMEN: Soft and nontender. No mass to palpate except mild tenderness to the right upper quadrant with the palpation. SKIN: Warm and dry. No lesion, rash, or erythema. MUSCULOSKELETAL: The patient able to move all extremities without difficulty. The patient denied claudication in lower extremities. NEUROLOGIC: The patient is alert and oriented x4. Nonfocal. PSYCHIATRIC: Mood appropriate. LABORATORY DATA: WBC 7.7, hemoglobin 14.0, hematocrit 42.4, platelet 259. Sodium 137, potassium 3.7, BUN 17, creatinine 0.96. AST 63, ALT 224, alkaline phosphatase is 180. CK-MB 0.6. Troponin is negative. Lipase is 6. TSH is 1.8231 in December 2017. The patient's 12-lead EKG at ER shows atrial fibrillation and rapid ventricular response with heart rate of 141, which was 1700 hours yesterday, October 08, but no ST-segment change or T-wave inversion, and the patient converted back to sinus rhythm at 2300 hours on October 08. ASSESSMENT AND PLAN: 1. New onset atrial fibrillation with rapid ventricular response. The patient converted back to sinus rhythm around 2300 hours on October 08, 2018. He is on metoprolol tartrate 25 mg twice a day. He received Lovenox subcu injection at the ER, however, any anticoagulant except aspirin 81 mg is on hold due to the possible surgery. Since last night the patient has been in sinus rhythm. We would like to continue current medication and would like to continue to monitor the patient on the telemetry and if he has a recurrent atrial fibrillation, we would like to adjust the patient's medication depending on his recurrent atrial fibrillation episode. 2. One episode of syncopal episode at the ER, possibly due to vasovagal episode when his IV was started at that time. We would like to continue to monitor on the telemetry at this moment. His troponin was negative. 3. Abdominal pain with elevated liver function level. The patient is going to have HIDA scan tomorrow to see any gallbladder present, which is ordered by Dr. Alvarez, and already consulted this patient. 4. Coronary artery disease with status post CABG x5 in 2013. He is on aspirin, atorvastatin, metoprolol, and he has denied any cardiac complaints at this moment. We would like to continue to monitor on the telemetry. 5. Hypertension. The patient's blood pressure is stable at this moment. We would like to continue current medication. 6. Prostate enlargement with lesion with a PSA 9.28 in July 2018. At this moment, the patient is stable. The patient is followed by Dr. Oviedo. Thank you very much for allowing the Cardiology Service to participate in the care of this patient. We will follow along the patient's care team and make further recommendations as appropriate. Job ID: [id number]
[2018-10-10] MEDS: Acetaminophen 325 MG TAB PO PRN (04:40)
[2018-10-10] MEDS: Piperacillin/Tazobactam 3.375 GM in Sodium Chloride 0.9% 100 ML IVPB SCH ×4 (04:41→22:37)
[2018-10-10 04:58] LABS: ALT (SGPT) 137 U/L (8-55); AST (SGOT) 27 U/L (5-34); Albumin 3.2 g/dL (3.4-4.8); Alkaline Phosphatase 158 U/L (40-150); Anion Gap 12 mmol/L (10-20); BUN (Urea Nitrogen) 16 mg/dL (8.4-25.7); Calc. Creatinine Clearance 79 mL/min (70-130); Carbon Dioxide 22 mmol/L (23-31); Chloride 108 mmol/L (98-107); Estimated GFR-MDRD 73; Globulin 2.7 g/dL (2.4-3.5); Glucose 97 mg/dL (83-110); Potassium 3.8 mmol/L (3.5-5.1); Protein, Total 5.9 g/dL (5.8-8.1); Sodium 138 mmol/L (136-145)
--- NOTE | 2018-10-10 11:13 | PDOC.PN ---
- Subjective Encounter Start Date: 10/10/18 Encounter Start Time: 11:12 Patient seen and examined, no new issues or complaints, at bedside, all questions answered. - Objective Resuscitation Status - Order Detail: 10/08/18 22:01 Resuscitation Status Routine Resuscitation Status: FULL: Full Resuscitation Vital Signs & Weight: Vital Signs (12 hours) Temp Pulse Resp BP BP Pulse Ox 10/10/18 07:50 98.5 F 56 L 20 129/73 94 L 10/10/18 03:37 98.8 F 67 17 113/67 93 L 10/10/18 00:00 98.1 F 64 19 110/56 L 97 Weight Weight 193 lb 12.8 oz I&O: 10/09/18 10/10/18 10/11/18 06:59 06:59 06:59 Intake Total 880 Output Total 1090 Balance -210 Result Diagrams: 10/09/18 02:33 10/10/18 04:21 Phys Exam - Physical Examination Constitutional: NAD HEENT: PERRLA, moist MMs, sclera anicteric Neck: no nodes, no JVD, supple Respiratory: no wheezing, no rales, no rhonchi Cardiovascular: RRR, no significant murmur, no rub Gastrointestinal: soft, non-tender, no distention, positive bowel sounds Musculoskeletal: pulses present, edema present (trace) Dx/Plan (1) Abdominal pain Code(s): R10.9 - UNSPECIFIED ABDOMINAL PAIN Status: Acute (2) Syncope Code(s): R55 - SYNCOPE AND COLLAPSE Status: Acute (3) CAD (coronary artery disease), [place] coronary artery Code(s): I25.10 - ATHSCL HEART DISEASE OF [place] CORONARY ARTERY W/O ANG PCTRS Status: Chronic (4) Hyperlipemia Code(s): E78.5 - HYPERLIPIDEMIA, UNSPECIFIED Status: Chronic (5) Tobacco abuse Code(s): Z72.0 - TOBACCO USE Status: Chronic - Plan * HIDA for today * CEA, CA 19-9 normal, PSA slightly elevated at 6, will monitor for now * subspecialists following * will await HIDA result and go from there * labs in AM
--- NOTE | 2018-10-10 12:40 | NM ---
EXAM: NM Hida Scan W Drug PROVIDED CLINICAL HISTORY: Abdominal pain COMPARISON: None FINDINGS: 4.8 mCi technetium 99m labeled mebrofenin was given intravenously. There is normal hepatic extraction of radiotracer with excretion into the gallbladder and biliary system and a normal amount of time. There is evidence for enterogastric reflux. Subsequent to the administration of 1.7 mcg of CCK analog , there is normal excretion of radiotracer from the gallbladder into bowel, with calculated gallbladder ejection fraction of 96%. IMPRESSION: 1. No evidence for cystic or complete common duct obstruction. 2. Delayed biliary to bowel transit, nonspecific. 3. Enterogastric reflux.
[2018-10-10] MEDS: Metoprolol Tartrate 25 MG TAB PO SCH ×2 (12:42→22:31)
[2018-10-10] MEDS: Aspirin 81 mg Enteric Coated Tablet PO SCH (12:42)
[2018-10-10] MEDS: Dronedarone HCl 400 MG TAB PO SCH ×2 (12:42→20:43)
[2018-10-10] MEDS: Pantoprazole 40 MG VIAL IVP SCH ×2 (12:44→22:35)
--- NOTE | 2018-10-10 14:22 | EKG ---
Test Reason : Blood Pressure : / mmHG Vent. Rate : 141 BPM Atrial Rate : 125 BPM P-R Int : 000 ms QRS Dur : 080 ms QT Int : 330 ms P-R-T Axes : 000 -14 055 degrees QTc Int : 505 ms Atrial fibrillation with rapid ventricular response with premature ventricular or aberrantly conducte d complexes Inferior infarct , age undetermined Abnormal ECG Confirmed by DEVON ESQUIVEL DO ([id number]), primer expeditor and drier ИРИНА TALAMANTES ([id number]) on 10/10/2018 2:22:09 PM Referred By: Confirmed By:DEVON ESQUIVEL DO
--- NOTE | 2018-10-10 16:15 | PDOC.CTH ---
Cardiology Progress Note - Subjective The pt seen and examined. No overnight events. No cardiac complaints. The pt denied any ABD pain at this moment. - Objective Vital Signs Temp Pulse Resp BP Pulse Ox 10/10/18 08:00 94 L 10/10/18 07:50 98.5 F 56 L 20 129/73 94 L Admit Weight 193 lb 12.8 oz Weight 193 lb 12.8 oz 10/09/18 10/10/18 10/11/18 06:59 06:59 06:59 Intake Total 880 Output Total 1090 Balance -210 - Physical Examination General/Neuro: alert & oriented x3 Neck: no JVD present Lungs: CTA Heart: RRR Abdomen: soft Extremities: other: (No edema) - Labs Result Diagrams: 10/09/18 02:33 10/10/18 04:21 Troponin/CKMB CK-MB (CK-2) 0.6 ng/mL (0-6.6) 10/08/18 17:12 Troponin I Less than 0.010 ng/mL (< 0.028) 10/09/18 02:33 - Assessment/Plan 1. New-onset Afib with RVR - remains in SR since last night; On Multaq; cont. ASA 81mg since his Afib episode <24 hours 2. ABD pain - s/p Hida scan today and waiting for the result 3. CAD with hx of CABG x 5 in 2013 4. HTN - stable 5. Hyperlipidemia - MAR reviewed Pt. seen and eval. by me. I agree with the A/P by the SECURED ENTRANCE MONITOR.Maintaining NSR. Chest clear. RRR. gjm Review of Systems - Review of Systems Constitutional: reports: no symptoms reported EENTM: reports: no symptoms reported Respiratory: reports: no symptoms reported Cardiac (ROS): reports: no symptoms reported ABD/GI: reports: no symptoms reported : reports: no symptoms reported Musculoskeletal: reports: no symptoms reported
--- NOTE | 2018-10-10 17:00 | PRG ---
DATE OF SERVICE: 10/10/2018 SUBJECTIVE: Mr. Lema is feeling much better. He states the purchase order checker changed him over to [place]. He has been at atrial fibrillation for 48 hours. He denies abdominal pain now. I did review his CAT scan with Radiology. They feel the lesion in the tail is just a simple cyst, but they are not sure if it is mucinous or cystic and I have reviewed those films with him, and there is no overt other characterization. As far as his abdominal discomfort, he does not really having now. He had liquids yesterday and tolerated, finally, like to eat regular food. PRESENT MEDICATIONS: Include, 1. Aspirin. 2. Metoprolol. 3. Protonix. 4. Zosyn. OBJECTIVE: VITAL SIGNS: Temperature is 98.5, pulse is 56, blood pressure 129/73. ABDOMEN: Soft and nontender. There is no rebound. There is no guarding. LABORATORY DATA: No CBC today, otherwise labs show bilirubin of 1, AST of 27, ALT of 37, and ALP of 158. IMAGING: The patient's HIDA scan showed no evidence of a cystic or complete common duct obstruction. Delayed to bowel transit and also some enterogastric reflux. Ejection fraction was 96%. ASSESSMENT: 1. Liver function test is improving. It is unclear if this was biliary etiology or possibly from some passive congestion of liver related to the atrial fibrillation he was in when he presented. 2. Intermittent bouts of bloating and abdominal discomfort after eating. There has been two distinct bouts. He has had a normal HIDA scan. Ultrasound showed a gallbladder wall thickening, but no stones, some sludge. There was no reproduction of symptoms with a HIDA scan. It is equivocal whether this is a gallbladder etiology or not. The symptoms were somewhat typical, but the findings and studies are very atypical. Surgery is going to visit with him later today apparently about the decision on whether or not to proceed with cholecystectomy. 3. Pancreatic cystic lesion. CEA and CA 19-9 were normal. The patient needs an outpatient endoscopic ultrasound to evaluate this further. This is of no urgency. 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 RECOMMENDATIONS: 1. We will await Surgery's opinion as noted above. 2. We will start diet if he is not going to have surgery. 3. We will follow up with Dr. Oscar Nugent, his primary gastrologist in the outpatient setting to arrange further evaluation of the pancreatic lesion. We will follow along with you. Job ID: [id number]
[2018-10-10] MEDS ORDERED: Dronedarone HCl 400 MG TAB PO SCH (21:00)
[2018-10-10] MEDS: Atorvastatin Calcium 40 MG TAB PO SCH (22:31)
[2018-10-11 05:12] LABS: #Eosinphils 0.3 thou/uL (0.0-0.7); #Lymphocytes 3.4 thou/uL (1.20-3.40); #Monocytes 0.6 thou/uL (0.11-0.59); #Neutrophils 3.7 thou/uL (1.40-6.50); %Basophils 0.4 % (0.0-1.0); %Eosinophils 3.2 % (0.0-10.0); %Lymphocytes 42.7 % (21.0-51.0); %Monocytes 7.6 % (0.0-10.0); %Neutrophils 46.3 % (42.0-75.0); Hemoglobin 13.1 g/dL (14.0-18.0); Mean Corpuscular HGB CONC 33.1 g/dL (32.0-36.0); Mean Corpuscular Hemoglobin 30.3 pg (27.0-31.0); Mean Corpuscular Volume 91.6 fL (78.0-98.0); Mean Platelet Volume 7.1 fL (7.4-10.4); Platelet Count 299 thou/uL (130-400); RBC Distribution Width 12.7 % (11.5-14.5); Red Blood Cell (RBC) Count 4.31 mill/uL (4.70-6.10)
[2018-10-11 05:22] LABS: Anion Gap 11 mmol/L (10-20); BUN (Urea Nitrogen) 18 mg/dL (8.4-25.7); Calc. Creatinine Clearance 79 mL/min (70-130); Carbon Dioxide 23 mmol/L (23-31); Chloride 108 mmol/L (98-107); Estimated GFR-MDRD 73; Glucose 91 mg/dL (83-110); Potassium 3.4 mmol/L (3.5-5.1); Sodium 139 mmol/L (136-145)
[2018-10-11] MEDS: Piperacillin/Tazobactam 3.375 GM in Sodium Chloride 0.9% 100 ML IVPB SCH ×2 (05:58→10:08)
[2018-10-11] MEDS ORDERED: ISOVUE-370 76%-LOCM 1 ML ONE (09:30)
[2018-10-11] MEDS: Aspirin 81 mg Enteric Coated Tablet PO SCH (10:02)
[2018-10-11] MEDS: Dronedarone HCl 400 MG TAB PO SCH ×2 (10:02→17:32)
[2018-10-11] MEDS: Metoprolol Tartrate 25 MG TAB PO SCH ×2 (10:02→20:43)
[2018-10-11] MEDS: Pantoprazole 40 MG VIAL IVP SCH ×2 (10:03→20:43)
--- NOTE | 2018-10-11 10:32 | PDOC.PN ---
- Subjective Encounter Start Date: 10/11/18 Encounter Start Time: 10:26 Patient seen and examined, at bedside. All questions answered. - Objective Resuscitation Status - Order Detail: 10/08/18 22:01 Resuscitation Status Routine Resuscitation Status: FULL: Full Resuscitation Vital Signs & Weight: Vital Signs (12 hours) Temp Pulse Resp BP BP Pulse Ox 10/11/18 09:30 98.3 F 59 L 20 172/87 H 93 L 10/11/18 04:00 98.4 F 52 L 18 115/66 93 L Weight Admit Weight 193 lb 12.8 oz Weight 193 lb 12.8 oz I&O: 10/10/18 10/11/18 10/12/18 06:59 06:59 06:59 Intake Total 880 440 Output Total 1090 Balance -210 440 Result Diagrams: 10/11/18 04:42 10/11/18 04:42 Phys Exam - Physical Examination Constitutional: NAD HEENT: PERRLA, moist MMs, sclera anicteric Neck: no nodes, no JVD, supple Respiratory: no wheezing, no rales, no rhonchi Cardiovascular: RRR, no significant murmur, no rub Gastrointestinal: soft, non-tender, no distention Musculoskeletal: no edema, pulses present Dx/Plan (1) Abdominal pain Code(s): R10.9 - UNSPECIFIED ABDOMINAL PAIN Status: Acute (2) Syncope Code(s): R55 - SYNCOPE AND COLLAPSE Status: Acute (3) CAD (coronary artery disease), [place] coronary artery Code(s): I25.10 - ATHSCL HEART DISEASE OF [place] CORONARY ARTERY W/O ANG PCTRS Status: Chronic (4) Hyperlipemia Code(s): E78.5 - HYPERLIPIDEMIA, UNSPECIFIED Status: Chronic (5) Tobacco abuse Code(s): Z72.0 - TOBACCO USE Status: Chronic - Plan * Patient's who's a nurse is requesting CT head and chest to make sure there's no mets, this is reasonable as the patient had sx apparently 7 months ago in [place] for a lesion in the pancreas and there were cancerous cells, she' s not able to recall what type. Advised to discuss PET with their out patient doc * Sx and GI following, given HIDA results and improvement the patient is unlikely to need his GB removed * monitor for now * will repeat labs in AM, patient's pain is slowly improving, says its 12/07 now , was 04/08 when he came in * will await final recs from Sx for now and DC clearance form subspecialists * patient and family advised to FU with their hepatobiliary surgeon in [place] for possible intervension as there still maybe a cancerous lesion present, may need an EUS * case and plan d/w patient and at length, they understood and agreed with this plan
--- NOTE | 2018-10-11 12:14 | CT ---
EXAM: CT brain with and without IV contrast PROVIDED CLINICAL HISTORY: Pancreatic lesion, evaluate for metastasis COMPARISON: None FINDINGS: The ventricular system appears normal in size and morphology. There is no evidence for intracranial h emorrhage or mass effect. No abnormal contrast enhancement is identified. The extracranial soft tissues and osseous structures demonstrate no acute abnormality. IMPRESSION: No evidence for an acute intracranial abnormality.
--- NOTE | 2018-10-11 13:25 | CT ---
CT OF THE THORAX WITH IV CONTRAST: Date: 10/11/18 INDICATION: History of a pancreatic lesion. Concern for thoracic metastatic disease. COMPARISON: CTA aortic dissection protocol from [facility] dated 10/08/18. FINDINGS: No suspicious pulmonary nodule is evident. There are two tiny sub-4 mm pulmonary nodules within the r ight upper lobe. No additional pulmonary nodule is evident. Pleural thickening and pleural calcification involving the right posterior hemithorax with associated adjacent subsegmental atelectasis is stable. There are calcified lymph nodes within the right hilar region and mediastinum. There are vascular irene cifications involving the thoracic aorta and coronary arteries. There is postsurgical change of prior CABG. There is pneumobilia present within the biliary system which is new from the prior exam, which may re flect sequelae of recent procedure. Recommend correlation. The gallbladder is only partially distende d with some pneumobilia. The cystic mass involving the pancreatic tail is again seen. There are calcified granuloma within the liver and spleen. No definite acute osseous abnormality is evident. IMPRESSION: 1. No suspicious pulmonary nodules to suggest metastatic disease. There are tiny sub-4 mm pulmonary nodules (2 in total) involving the right upper lobe. 2. Stable pleural based calcification and pleural thickening involving the posterior right hemithora x may reflect sequelae of prior trauma or possibly prior infection. There is stable scarring and [place] subsegmental atelectasis within the right lower lobe. 3. Findings of prior granulomatous disease. 4. Post CABG change. 5. Interval development of pneumobilia within the biliary system may reflect sequelae of recent inst rumentation. Recommend correlation with patient's surgical history. 6. Persistent cystic mass of the pancreatic tail. POS: LEOLA
[2018-10-11 14:19] LABS: ALT (SGPT) 99 U/L (8-55); AST (SGOT) 21 U/L (5-34); Albumin 3.2 g/dL (3.4-4.8); Alkaline Phosphatase 137 U/L (40-150); Bilirubin, Direct 0.4 mg/dL (0.1-0.3); Bilirubin, Total 0.8 mg/dL (0.2-1.2); Protein, Total 5.9 g/dL (5.8-8.1)
--- NOTE | 2018-10-11 14:59 | PRG ---
DATE OF SERVICE: 10/11/2018 SUBJECTIVE: Mr. Lema is feeling better today. He did say a little twinge in his right side of discomfort or something he just noticed, but earlier it was a pain. His asked the hospitalist to get a CAT scan of his brain and chest to make sure he did not have a metastatic disease and those apparently have been done. Results are not known to me at this time. I talked with Dr. Gabe Alvarez, he does not plan on doing cholecystectomy with a normal ejection fraction as the drainage in the biliary tree was a little bit slow. A question whether or not maybe there is some edema from his recent ampullary biopsies that may have caused some symptomatology. MEDICATIONS: Lipitor, Multaq, Lopressor, Protonix, Zosyn. PHYSICAL EXAMINATION: VITAL SIGNS: Temperature is 98.3. He has been afebrile since admission. Pulse is 59, blood pressure is 172/87. LUNGS: Clear. ABDOMEN: Soft and nontender with no palpable hepatosplenomegaly. LABORATORY DATA: Sodium 139, potassium 3.4, BUN and creatinine 18 and 0.99 this morning. LFTs were not run. CBC is normal, showed the white count of 8. ASSESSMENT: 1. Transient elevation of liver enzymes. It is unclear if this is related to his atrial fibrillation. His biopsy of his ampulla was about a week ago, it may have caused some trauma or edema, but it would be more likely that he has some stenosis with his previous endoscopic removal of polyp from this area, but there are no signs of biliary obstruction and his bilirubin was transiently elevated, but it has come back to normal now. There are no signs of cholangitis or an infected gallbladder and the antibiotics can be stopped. 2. 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 We will set that up. He has no further imaging. He needs no PET scan. 3. With regard to thickened gallbladder, again it is unclear the significance of that in the setting of new onset atrial fibrillation. He did not seem to have an infected gallbladder and even an infiltrative gallbladder with malignancy would not have a normal ejection fraction. His CT was a dissection protocol CT, I am not sure of the usefulness of that in looking at the gallbladder and upper abdominal tract. If he would have recurrent bouts of right upper quadrant pain, it would be reasonable to consider ERCP for further evaluation of the ampulla and even cholecystectomy empirically, if he has sludge and recurrent pain. Interestingly, the gallbladder was called thickened on the ultrasound, but reviewing the CT report, the radiologist felt the gallbladder appeared normal. On my evaluation of the study, gallbladder wall did not appear overly thick, although did enhance some. RECOMMENDATIONS: 1. Check LFTs today. If they continue to trend down, stop his antibiotics, I think he can go home. 2. He can followup with Dr. Nugent the next week or 2 in the office here. 3. I will convey Dr. Nugent's nurse to get a referral made to Dr. King for EUS of his pancreatic lesion. This can happen in the next 1 to 2 weeks, this is not emergent. Job ID: [id number]
--- NOTE | 2018-10-11 16:43 | PDOC.CTH ---
Cardiology Progress Note - Subjective The pt seen and examined. No overnight events. No cardiac complaints. The pt is resting well. - Objective Vital Signs Temp Pulse Resp BP Pulse Ox 10/11/18 09:30 98.3 F 59 L 20 172/87 H 93 L Admit Weight 193 lb 12.8 oz Weight 193 lb 12.8 oz 10/10/18 10/11/18 10/12/18 06:59 06:59 06:59 Intake Total 880 440 Output Total 1090 Balance -210 440 - Physical Examination General/Neuro: alert & oriented x3 Neck: no JVD present Lungs: CTA Heart: RRR Abdomen: soft Extremities: other: (No edema) - Telemetry Telemetry Rhythm: SR - Labs Result Diagrams: 10/11/18 04:42 10/11/18 04:42 Troponin/CKMB CK-MB (CK-2) 0.6 ng/mL (0-6.6) 10/08/18 17:12 Troponin I Less than 0.010 ng/mL (< 0.028) 10/09/18 02:33 - Assessment/Plan 1. New-onset Afib with RVR - remains in SR since 10/09/2018; On Multaq; cont. ASA 81mg since his Afib episode <24 hours 2. ABD pain - stable; plan for ERCP within [address] Nugent as outpt or EUS in [place], [place] 3. CAD with hx of CABG x 5 in 2013 - stable; on Bblocker, ASA, Statin 4. HTN - stable 5. Hyperlipidemia - on Statin MAR reviewed Pt. seen and eval. by me. I agree with the A/P by the INDUSTRIAL CHEMISTRY TEACHER. Chest clear. RRR. Home in AM likely. Follow up with Dr. Sullivan in 2-4 weeks. gjm Review of Systems - Review of Systems Constitutional: reports: no symptoms reported EENTM: reports: no symptoms reported Respiratory: reports: no symptoms reported Cardiac (ROS): reports: no symptoms reported ABD/GI: reports: no symptoms reported : reports: no symptoms reported Musculoskeletal: reports: no symptoms reported
--- NOTE | 2018-10-11 19:05 | PRG ---
DATE OF SERVICE: 10/11/2018 SUBJECTIVE: The patient feels fine. No pain. HIDA scan yesterday showed some slowing of contrast between the bile duct and the bowel, but otherwise the gallbladder filled, had 96% ejection fraction. OBJECTIVE: GENERAL: He looks good. VITAL SIGNS: His temperature is 98.3 pulse 59, blood pressure 172/87. ASSESSMENT: The ampullary swelling from recent biopsy and mass is probably creating a small amount of obstruction that created the pain that he experienced, but at this point, he does not need surgery. PLAN: Further evaluation with endoscopic ultrasound as planned with Dr. Nugent. No surgery indicated at this time. Job ID: [id number]
[2018-10-11] MEDS: Atorvastatin Calcium 40 MG TAB PO SCH (20:42)
[2018-10-12 07:05] LABS: #Basophils 0.1 thou/uL (0.0-0.2); #Eosinphils 0.3 thou/uL (0.0-0.7); #Lymphocytes 2.3 thou/uL (1.20-3.40); #Monocytes 0.6 thou/uL (0.11-0.59); #Neutrophils 4.7 thou/uL (1.40-6.50); %Basophils 0.6 % (0.0-1.0); %Eosinophils 4.2 % (0.0-10.0); %Lymphocytes 29.4 % (21.0-51.0); %Monocytes 7.3 % (0.0-10.0); %Neutrophils 58.5 % (42.0-75.0); Hemoglobin 13.7 g/dL (14.0-18.0); Mean Corpuscular HGB CONC 32.8 g/dL (32.0-36.0); Mean Corpuscular Hemoglobin 30.2 pg (27.0-31.0); Mean Platelet Volume 7.5 fL (7.4-10.4); Platelet Count 325 thou/uL (130-400); RBC Distribution Width 12.6 % (11.5-14.5); Red Blood Cell (RBC) Count 4.55 mill/uL (4.70-6.10)
[2018-10-12 07:21] LABS: Anion Gap 11 mmol/L (10-20); BUN (Urea Nitrogen) 17 mg/dL (8.4-25.7); Calc. Creatinine Clearance 74 mL/min (70-130); Calcium 9.1 mg/dL (7.8-10.44); Carbon Dioxide 24 mmol/L (23-31); Chloride 107 mmol/L (98-107); Estimated GFR-MDRD 69; Glucose 130 mg/dL (83-110); Potassium 3.6 mmol/L (3.5-5.1); Sodium 138 mmol/L (136-145)
[2018-10-12] MEDS: Pantoprazole 40 MG VIAL IVP SCH (09:10)
[2018-10-12] MEDS: Metoprolol Tartrate 25 MG TAB PO SCH (09:10)
[2018-10-12] MEDS: Aspirin 81 mg Enteric Coated Tablet PO SCH (09:10)
[2018-10-12] MEDS: Dronedarone HCl 400 MG TAB PO SCH (09:10)
--- NOTE | 2018-10-12 10:32 | CON ---
DATE OF CONSULTATION: REASON FOR CONSULTATION: Abnormal LFTs, abnormal imaging of the pancreas, abnormal gallbladder. HISTORY OF PRESENT ILLNESS: Mr. Lema is a 78-year-old man admitted to the hospital with new onset atrial fibrillation, indeterminate troponins and mildly elevated liver enzymes. He has a remote history of colorectal cancer diagnosed and resected in 2000 in [place]. Recently seen Dr. 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 He was sent to [facility], Dr. Petar iJmenez. It was removed. He had a followup endoscopy with Dr. Nugent who has taken over his care in practice on 10/01 and felt there was still an adenoma there and there was some reactive atypia noted on the biopsy. I am not sure if a decision is really made on the followup of that and the patient states they have a followup with her family upcoming. Outside of this about a month ago, the patient had a bout of epigastric pain, vague, tight, radiating up to the chest and maybe into the mid back that went away. It did not occur again until just a couple of days ago. When he had talked with Dr. Minor and Dr. Nugent about this pain, there was some concern that maybe it was biliary related and they were going to get an outpatient gallbladder evaluation set up. However, yesterday when the patient went to see Dr. Minor to review some old records, he mentioned the pain had kind of come on in the past [address] Minor examined him, he found the patient to be in atrial fibrillation and therefore he was going to be admitted directly, but there were no beds. He was sent to the emergency room. He apparently was admitted last night and came up to the floor here this morning. Another request for the consult was put in last night at 2200 hours, where I was contacted this afternoon around 1700 hours. The patient he is feeling a bit better now. The pain at times radiated to his back, maybe mid to low back, but not to his legs, somewhat to his chest region. When he was here a month ago with that pain, he had a cardiac evaluation as previously mentioned. He had a normal echocardiogram with EF of 50%-55%, sclerotic aortic valve, mild mitral regurgitation, mild tricuspid regurgitation. He also had a stress test at that time that was normal, Cardiolite. It was felt it may be a lot of his symptoms maybe were reflux, so his PPI was doubled to b.i.d. He had a prostate MRI with Dr. Pedro Hidalgo, he has had abnormal rectal exam. This showed low likelihood of clinically significant malignancy as being present apparently at his followup there. When he presented here from Dr. Minor's office, he had a chest x-ray yesterday which showed changes of median sternotomy. CT dissection protocol showed no dissection, a 3.5 cm infrarenal aortic aneurysm, a right renal cyst, a 3.2 cm hypodense mass in the tail of pancreas, a 2 mm cyst in the renal cortex. An ultrasound of the abdomen was performed. This showed gallbladder sludge, no overt stones, gallbladder wall thickening up to 1 cm in size. Also, the patient is noted to have mildly elevated liver enzymes. The patient denies any fever or chills. His notes he has maybe lost about the past, 10 pounds. He has also been profoundly fatigued over the past several weeks. He has worked on the [employer] pretty much his whole life, but was really not able to do very much in the past couple of weeks. His does contribute though that they thought that the day before, on Friday, may have had a temperature of 100.5 with some sweats in the evening. Asking more details about the patient's pain notes that often the pain is feels like a pressure or distention of the upper abdomen, sometimes more on the right side, a twisting discomfort, but most meals he eats, he has no discomfort. He reports that between the episode a month ago and this episode just before this admission, he has really had no problems. He does note a little bit of anorexia. He denies any overt reflux, melena, hematochezia, or hematemesis. REVIEW OF SYSTEMS: The patient has a syncopal episode in the emergency room when he had his IV started but, apparently that happens frequently and he also apparently was felt to have rales, but again on admission when he was in his office, but he does any shortness of breath or dyspnea on exertion. However, he has mainly been very fatigued. Denies chest pain, exertion, or orthopnea. He denies any peripheral edema, hepatitis, or prior history of liver disease. PAST HISTORY: Coronary artery disease, five-vessel bypass, hypertension, hyperlipidemia, history of colorectal cancer, prostate enlargement, so increased PSA from 6-10 or less over the years. He is to have a biopsy, now but he is reluctant at this point. 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 SOCIAL HISTORY: Negative for alcohol or tobacco. His is here in his bedside. FAMILY HISTORY: Negative for cancer or liver disease. MEDICATIONS: 1. Metoprolol. 2. Cialis. 3. Flomax. 4. Atorvastatin. 5. Aspirin. Present medications: 1. Tylenol. 2. Lipitor. 3. Protonix. 4. Zosyn. 5. Pantoprazole. 6. Lopressor. PHYSICAL EXAMINATION: GENERAL: The patient is resting comfortably in bed. Cardiology is here seeing him as well. His is in the bed bedroom as well. VITAL SIGNS: He has been afebrile since admission. Temperature 98.1, pulse 64, blood pressure 139/76. LUNGS: Clear. No JVD. HEART: Regular rhythm. LUNGS: Clear. ABDOMEN: Soft. No rebound. No tenderness. There is a scar on the upper abdomen consistent with previous laparotomy. There is a small hernia associated with this, but no incarcerated tissue. He has a scar on his chest, median sternotomy. No varicosities on the abdominal wall. There is no palpable hepatosplenomegaly. There is no fluid wave or shifting dullness. EXTREMITIES: No clubbing, cyanosis, or edema. He has no spider angiomata on the hands or edema in the legs, spider angiomata on the chest. LABS: 1. White count was 9.3 yesterday, 7.7 today. Hemoglobin 15.9 yesterday, 14 today. Platelet count 285, 159 today. Differential normal. Chemistry profile normal except for glucose 152, bilirubin is 0.9, AST 63, ALT 224, alkaline phosphatase 180. Yesterday, the alkaline phosphatase was 245, ALT was 330, and ALT was 63, albumin 3.2, total protein 6. Troponins were negative . On 10/08/2018, his bilirubin was 1.7. Previous admission in August showed completely normal liver function tests. ASSESSMENT: 1. Mr. Lema has a few things, he has a couple of episodes of abdominal pain describing this distention and tightness that could be biliary as once at least it seems was with meals, but I am not sure what to classify this. It is classified as classic biliary symptoms. He does say it has radiation to the back, but it has been low in the back below the scapula. However, he does have a thickened gallbladder wall and mildly elevated liver enzymes and that maybe enough to point to biliary tract disease. He does not appear to have a dilated common bile duct despite a history of having an ampullary adenoma, we had a recent intervention on that. The bile duct ultrasound was noted to be only nondistended. At this time, he shows no signs of cholangitis. He is not particularly tender in the right upper quadrant. He has no leukocytosis and that makes cholecystitis a little bit less likely. Other etiologies caused his gallbladder look distended and to make his liver enzymes go up would be some type of passive congestion of the liver. This could be conceivably caused by his atrial fibrillation, which was new onset when she brought him into the hospital in the first place. That is also to be considered, especially in light of the lack of any infectious signs such as fever here, leukocytosis or tenderness in the right upper quadrant. 2. He does have a pancreatic lesion. He notes he has had a lot of imaging in the past, but reviewing the records, there has been no CT scans here. I think this needs to be worked up. We will attempt to do this more in the outpatient setting or after the acute issues resolved here. PLAN: 1. Agree with empiric antibiotics, as had reported fever at home. 2. Agree with Cardiology to re-evaluate him. 3. Agree with getting a HIDA scan or make sure he does not have an acalculous cholecystitis or possibly small stones and sludge colon causing cholecystitis. We will watch him closely. We will follow his liver function test. Would not sort of embark on a hepatitis workup at this time as they have always been normal in the past. Depending on the finding of the studies, it may or may not be reasonable to perform CT three phase of the pancreas to the pancreatic lesion here. If he is still trying to figure out what is causing his symptoms for that can be performed as an outpatient. Alternatively, a EUS could be performed as an outpatient to further evaluate that lesion. We will follow along with you during the hospitalization. Job ID: [id number]
--- NOTE | 2018-10-12 12:44 | PDOC.CTH ---
Cardiology Progress Note - Subjective The pt seen and examined. No overnight events. No cardiac complaints. - Objective Vital Signs Temp Pulse Resp BP Pulse Ox 10/12/18 08:00 98.1 F 77 18 161/88 H 93 L 10/12/18 04:00 97.8 F 52 L 18 135/72 95 Admit Weight 193 lb 12.8 oz Weight 193 lb 12.8 oz 10/11/18 10/12/18 10/13/18 06:59 06:59 06:59 Intake Total 440 395 Balance 440 395 - Physical Examination General/Neuro: alert & oriented x3 Neck: no JVD present Lungs: CTA Heart: RRR Abdomen: soft Extremities: other: (No edema) - Telemetry Telemetry Rhythm: SR - Labs Result Diagrams: 10/12/18 06:15 10/12/18 06:15 Troponin/CKMB CK-MB (CK-2) 0.6 ng/mL (0-6.6) 10/08/18 17:12 Troponin I Less than 0.010 ng/mL (< 0.028) 10/09/18 02:33 - Assessment/Plan 1. New-onset Afib with RVR - remains in SR since 10/09/2018; On Multaq; cont. ASA 81mg since his Afib episode <24 hours; recommend to have some type of heart monitor to cont. monitor his heart rhythm 2. ABD pain - stable; plan for ERCP within [address] Nugent as outpt or EUS in [place], [place] 3. CAD with hx of CABG x 5 in 2014 - stable; on Bblocker, ASA, Statin 4. HTN - stable 5. Hyperlipidemia - on Statin MAR reviewed * From Cardiac standpoint, the pt is stable to d/c home. Cont. ASA 81mg since his Afib episode <24 hours; recommend to have some type of heart monitor to cont. monitor his heart rhythm. * Follow up with Dr. Sullivan in 2-4 weeks. Pt. seen and eval. by me. I agree with the A/P by the OUTPATIENT FACILITY PHYSICAL THERAPIST Chest clear. RRR. gjm Review of Systems - Review of Systems Constitutional: reports: no symptoms reported EENTM: reports: no symptoms reported Respiratory: reports: no symptoms reported Cardiac (ROS): reports: no symptoms reported ABD/GI: reports: no symptoms reported : reports: no symptoms reported Musculoskeletal: reports: no symptoms reported
[2018-10-12 13:05] LABS: ALT (SGPT) 85 U/L (8-55); AST (SGOT) 29 U/L (5-34); Albumin 3.4 g/dL (3.4-4.8); Alkaline Phosphatase 142 U/L (40-150); Bilirubin, Direct 0.2 mg/dL (0.1-0.3); Bilirubin, Total 0.5 mg/dL (0.2-1.2); Protein, Total 6.3 g/dL (5.8-8.1)
[2018-10-12 15:28] VITALS: BP 142/76; TEMP 97.5
--- NOTE | 2018-10-13 12:58 | DIS ---
DATE OF ADMISSION: 10/08/2018 DATE OF DISCHARGE: 10/12/2018 DISCHARGE DIAGNOSES: 1. Epigastric abdominal pain. 2. Ultrasound findings of a thickened gallbladder wall up to 1 cm. 3. Elevated liver function tests. 4. History of ampulla adenoma reportedly benign per GI. 5. Recent history of ampulla surveillance biopsy. 6. Atrial fibrillation. 7. 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 8. 3.2 cm hypodense mass in the tail of the pancreas. 9. Coronary artery disease with history of coronary artery bypass. 10. History of colon cancer, status post resection. 11. History of prostate enlargement with elevated PSA. 12. Hypertension. 13. Hyperlipidemia. HISTORY OF PRESENT ILLNESS: This patient is a 78-year-old male, who had this history of adenoma of the ampulla, which had been referred to Dr. King in [place], where he had removal. Per GI consult, it was a benign adenoma. The patient had been following with Dr. Nugent in getting surveillance, biopsies of this area. He had reported recent onset of some abdominal pain, which was more epigastric in nature. He was following up with his PCP in relation to having recurrence of these pains when he was found to be in atrial fibrillation on physical exam, because there were no beds immediately available for direct admission. He was referred to the emergency department. There, he underwent a CT dissection protocol, which revealed no evidence of dissection but did reveal a 3.2 cm hypodense lesion in the tail of the pancreas as well as some evidence of gallbladder wall thickening, and a 3.5 cm infrarenal abdominal aortic aneurysm. He subsequently had abdominal ultrasound once his liver enzymes were noted to be elevated with AST of 63, ALT 224, alkaline phosphatase 180, total bilirubin 0.9. The gallbladder ultrasound showed gallbladder sludge with wall thickening up to 1 cm in a small benign right renal cyst. The patient had reported some evidence of fever at home, although his initial white count was 9.3. His exam did not reveal any significant right upper quadrant tenderness. Given these findings, the patient was admitted to the hospital with new onset atrial fibrillation. He received a dose of Lovenox in the emergency department. He was started on antibiotics. Given the recent instrumentation of the ampulla, elevated liver enzymes and the findings on the ultrasound, he had consultations by GI surgery and Cardiology. With regard to the patient's atrial fibrillation, he converted to sinus rhythm fairly quickly. He was started on Multaq. However, given the short duration, there was a decision made not to pursue more aggressive anticoagulation and to leave him on the aspirin alone and continue to monitor. He had no further episodes of atrial fibrillation during his hospitalization. The patient was seen by GI, who recommended a HIDA scan. HIDA scan returned normal and the patient's liver enzymes continued to improve very quickly daily. Therefore, no surgery was felt to be indicated. With regards to the patient's abdominal pain, GI felt that this could have been caused by some passive liver congestion as a result of his new onset atrial fibrillation. It was unclear whether this was related to the gallbladder ampulla given his symptoms and lack of tenderness in the right upper quadrant and the pancreatic tail mass was felt to be best evaluated by endoscopic ultrasound, which could be accomplished in followup with Dr. King. The patient had a CEA and CA-19-9 in light of his history of the colon cancer. These numbers were normal. He also had a PSA which was at 6, which was below his reported previous values. Once the patient's liver enzymes had normalized, the workup was complete. No surgery was felt to be indicated. CT chest and head was obtained in order to rule out any possibilities of metastatic disease, was only notable for interval development of pneumobilia suspected to be related to the patient's recent instrumentation in the persistent cystic mass in the tail of the pancreas. The patient was comfortable with going home to continue to have outpatient followup. PHYSICAL EXAMINATION: VITAL SIGNS: On the day of discharge, temperature was 97.5, pulse 60, respirations 17, O2 saturation was 96% on room air, BP was 142/76. GENERAL: He was awake, alert, very pleasant, in no distress. HEART: Regular rate and rhythm. LUNGS: Clear bilaterally. ABDOMEN: Soft, nontender, and nondistended with positive bowel sounds. No masses. No tenderness or organomegaly. EXTREMITIES: No cyanosis, clubbing, or edema. LABORATORY DATA: White count was normal at 8.0. AST was 29, ALT 85, alkaline phosphatase 142. DISPOSITION: The patient is discharged to home. ACTIVITY: As tolerated. DIET: He should stay on a heart healthy diet. DISCHARGE MEDICATIONS: He will be on Multaq 400 mg b.i.d. and resume his usual home medications includin. Centrum Silver. 2. CoQ10. 3. Lipitor. 4. Cialis. 5. Flomax. 6. Aspirin 81 mg daily. 7. Metoprolol 50 mg daily. 8. Protonix 40 mg b.i.d. FOLLOWUP: He will follow up with Dr. Andrzej Minor in 7 days. He is to follow up with Dr. Sullivan in 2 to 3 weeks regarding his atrial fibrillation. He is to follow up with Dr. Nugent within 14 days. He is also encouraged to call Dr. King's office and have followup there and to take copies of their imaging studies to that visit, as the patient will need further workup of his pancreatic tail mass as well as this episode of elevated liver enzymes. He can return to the hospital should he have any problems prior to that time. All of his questions were answered. TIME SPENT: Total time in discharge planning including [id number] time with the patient was 40 minutes. Job ID: [id number]
== END 2018-10-12 15:28 | disposition home or self-care (01) | DRG 310 ==
LOC: ERS 16:51 → ERHOLD 21:02 → 2NO 23:32
PROVIDERS: ADMIT Internal Medicine; ATTEND Internal Medicine
DX: I48.91 Unspecified atrial fibrillation (principal); R10.13 Epigastric pain; R55 Syncope and collapse; K86.9 Disease of pancreas, unspecified; I10 Essential (primary) hypertension; E78.5 Hyperlipidemia, unspecified; I25.10 Atherosclerotic heart disease of native coronary artery without angina pectoris; N40.0 Benign prostatic hyperplasia without lower urinary tract symptoms; K21.0 Gastro-esophageal reflux disease with esophagitis; I71.4 Abdominal aortic aneurysm, without rupture; R79.89 Other specified abnormal findings of blood chemistry; R93.2 Abnormal findings on diagnostic imaging of liver and biliary tract; Z85.038 Personal history of other malignant neoplasm of large intestine; Z79.82 Long term (current) use of aspirin; Z79.899 Other long term (current) drug therapy; Z95.1 Presence of aortocoronary bypass graft
CPT/HCPCS: 36415; 36416; 70470; 71045; 71260; 71275; 76705; 78227; 80048; 80053; 80076; 82378; 82553; 83690; 84153; 84154; 84443; 84484; 85025; 86301; 93005; 96365; 96372; A9537; C9113; J1650; J2543; J3490; Q9966

== ENCOUNTER 2019-05-13 15:23 | Emergency (ER) | payer MEDICARE, OTHER ==
[2019-05-13] MEDS ORDERED: Iopamidol-370 76% 500 ML 1 ML ONE (15:27)
--- NOTE | 2019-05-13 16:17 | RAD ---
Chest AP view INDICATION: Vomiting and chest pain COMPARISON: October 08, 2018 FINDINGS: Lungs:Mild left basilar atelectasis Cardiac silhouette:The cardiomediastinal silhouette appears within normal limits. Pulmonary vasculature:Normal Pleural spaces:No pleural effusion or pneumothorax is demonstrated. Upper abdomen:No abnormality seen. Osseous structures: Stable midline sternotomy Additional findings:Stable calcifications within the right hilar region. IMPRESSION: No acute cardiopulmonary abnormality.
[2019-05-13 16:40] LABS: #Monocytes 0.8 thou/uL (0.11-0.59); #Neutrophils 9.8 thou/uL (1.40-6.50); %Basophils 0.1 % (0.0-1.0); %Eosinophils 0.2 % (0.0-10.0); %Lymphocytes 8.8 % (21.0-51.0); %Neutrophils 83.9 % (42.0-75.0); Hemoglobin 15.3 g/dL (14.0-18.0); Mean Corpuscular HGB CONC 33.5 g/dL (32.0-36.0); Mean Corpuscular Hemoglobin 30.3 pg (27.0-31.0); Mean Corpuscular Volume 90.5 fL (78.0-98.0); Mean Platelet Volume 7.4 fL (7.4-10.4); Platelet Count 263 thou/uL (130-400); RBC Distribution Width 12.4 % (11.5-14.5); Red Blood Cell (RBC) Count 5.05 mill/uL (4.70-6.10); White Blood Cell (WBC) Count 11.7 thou/uL (4.8-10.8)
[2019-05-13 17:02] LABS: ALT (SGPT) 667 U/L (8-55); AST (SGOT) 952 U/L (5-34); Albumin 4.1 g/dL (3.4-4.8); Alkaline Phosphatase 307 U/L (40-110); Anion Gap 12 mmol/L (10-20); BUN (Urea Nitrogen) 20 mg/dL (8.4-25.7); Bilirubin, Total 4.7 mg/dL (0.2-1.2); Calc. Creatinine Clearance 0 mL/min (70-130); Calcium 9.7 mg/dL (7.8-10.44); Carbon Dioxide 27 mmol/L (23-31); Chloride 102 mmol/L (98-107); Estimated GFR-MDRD 58; Glucose 179 mg/dL (83-110); Lipase 13 U/L (8-78); Potassium 4.1 mmol/L (3.5-5.1); Protein, Total 7.1 g/dL (5.8-8.1); Sodium 137 mmol/L (136-145)
--- NOTE | 2019-05-13 17:58 | CT ---
EXAM: Abdomen and pelvic CT scan with contrast: HISTORY: Pain COMPARISON: CT exam 10/11/2018, and 10/08/2018 FINDINGS: Atelectasis is seen at the lung bases, greater on the right. Liver: Interspersed biliary air is redemonstrated Gallbladder: Dependent gallbladder air is seen Pancreas: Redemonstration of lobular cystic mass at the pancreatic tail, grossly stable at 2.9 cm in diameter. Spleen: Scattered granulomatous calcifications Adrenal glands: Unremarkable. Kidneys: Right renal parenchymal cyst is redemonstrated. Parapelvic cyst of right kidney is also rede monstrated. Bowel: No evidence for bowel obstruction. Urinary Bladder: The urinary bladder is unremarkable. Heterogeneity and enlargement of prostate gland. Correlate clinically. Adenopathy: No adenopathy within the abdomen or pelvis. Free Air: No free air. Ascites: No ascites. Osseous structures: No acute osseous abnormalities. IMPRESSION: Redemonstration of scattered areas of biliary air. Correlate clinically. Redemonstration of cystic mass of the pancreatic tail. This is grossly stable in volume. Transcribed Date/Time: 05/13/2019 6:16 PM
--- NOTE | 2019-05-13 19:53 | ULT ---
GALLBLADDER ULTRASOUND: 05/13/19 COMPARISON: 10/08/18. INDICATION: Pain. FINDINGS: There is distention of the gallbladder with borderline size of the gallbladder wall just under 3 mm i n thickness. There is increased echogenicity, nonshadowing of the gallbladder lumen indicative of slu dge. Hyperechoic artifacts related to intraluminal gallbladder air is present as was depicted on prec eding CT exam. No focal hepatic lesion. Common duct measures 5 mm. No ascites visualized. IMPRESSION: Distended gallbladder with borderline sized gallbladder wall. Low-level echoes of the gallbladder l umen indicating gallbladder sludge with adjacent artifact related to intraluminal gallbladder air. POS: NWK
[2019-05-13] MEDS ORDERED: Piperacillin/Tazobactam 4.5 GM VIAL ONE (20:05)
[2019-05-13 20:14] LABS: Bacteria/HPF None Seen HPF (None Seen); Bilirubin 1+ (Negative); Blood, Urine Negative (Negative); Clarity Clear (Clear); Glucose, Urine (Dipstick) Normal (Negative); Leukocyte Negative Leu/uL (Negative); Mucous/LPF Rare LPF (<2+); Nitrite Negative (Negative); Protein, Urine (Dipstick) 30 mg/dL (Neg-Trace); RBC/HPF 0-3 HPF (0-3); Squamous Epithelial 0-3 HPF (0-3); Urobilinogen 6 mg/dL (Less than 2); WBC/HPF 0-3 HPF (0-3)
== END 2019-05-13 23:31 | disposition short-term general hospital (02) ==
LOC: ERS 15:23
DX: K81.0 Acute cholecystitis (principal); I10 Essential (primary) hypertension; I25.10 Atherosclerotic heart disease of native coronary artery without angina pectoris; I25.2 Old myocardial infarction; E78.00 Pure hypercholesterolemia, unspecified; N40.0 Benign prostatic hyperplasia without lower urinary tract symptoms; Z87.891 Personal history of nicotine dependence; Z79.899 Other long term (current) drug therapy; Z79.82 Long term (current) use of aspirin
CPT/HCPCS: 71045; 74177; 76705; 80053; 81003; 81015; 83605; 83690; 84484; 85025; 93005; 96361; 96365; J2543; Q9967

== ENCOUNTER 2020-07-03 06:40 | Outpatient (CLI) | payer MEDICARE, OTHER ==
[2020-07-03 09:47] LABS: Hemoglobin 14.2 g/dL (14.0-18.0); Mean Corpuscular Hemoglobin 26.7 PG (27.0-33.0); Mean Corpuscular Volume 86.3 fl (80.0-100.0); Mean Platelet Volume 10.2 fl (7.4-10.4); Platelet Count 303 10x3/uL (130-400); RBC Distribution Width 14.6 % (11.5-14.5); Red Blood Cell (RBC) Count 5.31 10x6/uL (4.40-5.80); White Blood Cell (WBC) Count 9.6 10x3/uL (4.5-11.0)
[2020-07-03 10:09] LABS: PTT 30.1 sec (22.0-33.0); Prothrombin Time 10.4 sec (9.5-12.1)
[2020-07-03 10:22] LABS: Anion Gap 16 mmol/L (10-20); BUN (Urea Nitrogen) 16 mg/dL (8.4-25.7); Calc. Creatinine Clearance 0 mL/min (70-130); Calcium 9.2 mg/dL (7.8-10.44); Carbon Dioxide 23 mmol/L (23-31); Chloride 106 mmol/L (98-107); Glucose 106 mg/dL (83-110); Potassium 4.8 mmol/L (3.5-5.1); Sodium 140 mmol/L (136-145)
[2020-07-03 22:10] LABS: SARS-CoV-2 MS2 Positive; SARS-CoV-2 N Gene Negative; SARS-CoV-2 S Gene Negative; SARS-CoV-2 by NAA Not Detected (NotDetected); SARS-CoV-2 orf1ab Negative
== END 2020-07-03 06:41 | disposition home or self-care (01) ==
LOC: LABBT 06:40
PROVIDERS: ATTEND Internal Medicine Cardiovascular Disease
DX: Z01.818 Encounter for other preprocedural examination (principal); I48.91 Unspecified atrial fibrillation; Z20.822 Contact with and (suspected) exposure to COVID-19
CPT/HCPCS: 80048; 85027; 85610; 85730; 93005; U0003; 87635; 93010

== ENCOUNTER 2021-07-02 09:54 | Outpatient (CLI) | payer MEDICARE, OTHER ==
[2021-07-02 11:14] LABS: Hemoglobin 13.4 g/dL (13.5-17.5); Mean Corpuscular HGB CONC 31.5 g/dL (32.0-36.0); Mean Corpuscular Hemoglobin 26.9 pg (27.0-33.0); Mean Corpuscular Volume 85.4 fl (81.2-95.1); Mean Platelet Volume 10.1 fl (7.4-10.4); Platelet Count 287 10x3/uL (150-450); RBC Distribution Width 14.9 % (11.5-14.5); Red Blood Cell (RBC) Count 4.99 10x6/uL (4.32-5.72); White Blood Cell (WBC) Count 8.8 10x3/uL (3.5-10.5)
[2021-07-02 11:34] LABS: INR-International Normal Ratio 1.1; Prothrombin Time 11.9 sec (9.5-12.1)
[2021-07-02 11:49] LABS: Anion Gap 13 mmol/L (10-20); BUN (Urea Nitrogen) 19 mg/dL (8.4-25.7); Calc. Creatinine Clearance 0 mL/min (70-130); Calcium 9.4 mg/dL (7.8-10.44); Carbon Dioxide 25 mmol/L (23-31); Chloride 105 mmol/L (98-107); Glucose 107 mg/dL (83-110); Potassium 4.5 mmol/L (3.5-5.1); Sodium 138 mmol/L (136-145)
[2021-07-02 19:45] LABS: SARS-CoV-2 PCR by NAA Not Detected (NotDetected)
== END 2021-07-02 09:55 | disposition home or self-care (01) ==
LOC: LABBT 09:54
PROVIDERS: ATTEND Internal Medicine Cardiovascular Disease
DX: Z01.812 Encounter for preprocedural laboratory examination (principal); I48.19 Other persistent atrial fibrillation; Z20.822 Contact with and (suspected) exposure to COVID-19
CPT/HCPCS: 80048; 85027; 85610; 85730; U0003; U0005

== ENCOUNTER 2021-07-04 07:55 | Day surgery (SDC) | payer MEDICARE, OTHER ==
[2021-06-27 15:31] VITALS: BMI 29.5
[2021-07-04] MEDS ORDERED: Heparin 10,000 UNITS/ 10 ML VIAL ONE (10:07)
[2021-07-04] MEDS ORDERED: Heparin 25,000 units/D5W 500 ML ONE (10:07)
[2021-07-04] MEDS ORDERED: Protamine Sulfate 50 MG/5 ML VIAL ONE ×2 (10:07→13:24)
[2021-07-04] MEDS ORDERED: Isoproterenol 0.2 MG/1 ML AMP ONE (10:07)
[2021-07-04] MEDS ORDERED: Fentanyl 100 MCG/2 ML VIAL ONE (11:23)
[2021-07-04] MEDS ORDERED: Rocuronium Bromide 10 MG/ML (10ML VIAL) ONE (11:36)
[2021-07-04] MEDS ORDERED: Ondansetron PF 4 MG/2 ML Vial ONE (11:36)
[2021-07-04] MEDS ORDERED: Ketorolac Tromethamine 30 MG/ML VIAL ONE (11:36)
[2021-07-04] MEDS ORDERED: Dexamethasone 20 MG/5 ML VIAL ONE (11:36)
[2021-07-04] MEDS ORDERED: PROPOFOL 200 MG/20 ML VIAL ONE (11:36)
[2021-07-04] MEDS ORDERED: Phenylephrine 10 MG/ML VIAL ONE (11:36)
[2021-07-04] MEDS ORDERED: Metoclopramide HCl 10 MG/2 ML VIAL ONE (11:36)
[2021-07-04] MEDS ORDERED: ePHEDrine 50 MG/ML VIAL ONE (11:36)
[2021-07-04] MEDS ORDERED: Lidocaine 1% PF 5 ML VIAL ONE (11:36)
[2021-07-04] MEDS ORDERED: Famotidine/PF 20 mg/2ml Vial ONE (11:42)
[2021-07-04] MEDS ORDERED: SUGAMMADEX SODIUM 200 MG/2 ML VIAL ONE (11:42)
== END 2021-07-04 18:06 | disposition home or self-care (01) ==
LOC: CCL 07:55
PROVIDERS: ATTEND Internal Medicine Cardiovascular Disease
PROC: 4A023FZ Measurement of Cardiac Rhythm, Percutaneous Approach (ICD-10-PCS; principal; 2021-07-04)
PROC: 4A0234Z Measurement of Cardiac Electrical Activity, Percutaneous Approach (ICD-10-PCS; 2021-07-04)
PROC: 02583ZZ Destruction of Conduction Mechanism, Percutaneous Approach (ICD-10-PCS; 2021-07-04)
PROC: 02K83ZZ Map Conduction Mechanism, Percutaneous Approach (ICD-10-PCS; 2021-07-04)
PROC: B24BZZ4 Ultrasonography of Heart with Aorta, Transesophageal (ICD-10-PCS; 2021-07-04)
DX: I48.19 Other persistent atrial fibrillation (principal); I25.10 Atherosclerotic heart disease of native coronary artery without angina pectoris; I10 Essential (primary) hypertension; E78.5 Hyperlipidemia, unspecified; N40.0 Benign prostatic hyperplasia without lower urinary tract symptoms; Z79.01 Long term (current) use of anticoagulants; Z79.82 Long term (current) use of aspirin; Z79.899 Other long term (current) drug therapy; Z95.1 Presence of aortocoronary bypass graft; Z80.0 Family history of malignant neoplasm of digestive organs; Z87.891 Personal history of nicotine dependence
CPT/HCPCS: 85347; 93005; 93312; 93613; 93622; 93623; 93656; 93657; 93662; C1732; C1759; C1776; J1100; J1644; J1885; J2370; J2405; J2704; J2720; J2765; J3010; J3490; S0028

== ENCOUNTER 2021-12-13 12:44 | Outpatient (CLI) | payer MEDICARE, OTHER ==
[2021-12-13 14:42] LABS: Mean Corpuscular HGB CONC 31.3 g/dL (32.0-36.0); Mean Corpuscular Hemoglobin 26.4 pg (27.0-33.0); Mean Corpuscular Volume 84.6 fl (81.2-95.1); Mean Platelet Volume 9.8 fl (7.4-10.4); Platelet Count 315 10x3/uL (150-450); RBC Distribution Width 14.6 % (11.5-14.5); Red Blood Cell (RBC) Count 4.92 10x6/uL (4.32-5.72); White Blood Cell (WBC) Count 9.1 10x3/uL (3.5-10.5)
[2021-12-13 14:45] LABS: Bilirubin Neg (Negative); Blood, Urine Negative (Negative); Clarity Clear (Clear); Glucose, Urine (Dipstick) Normal (Negative); Ketone, Urine Negative (Negative); Leukocyte Negative (Negative); Nitrite Negative (Negative); Protein, Urine (Dipstick) 15 mg/dl (Neg-Trace); Urobilinogen Normal mg/dL (Less than 2)
[2021-12-13 14:50] LABS: PTT 27.6 sec (22.0-33.0); Prothrombin Time 10.6 sec (9.5-12.1)
[2021-12-13 15:01] LABS: Bacteria/HPF 2+ HPF (None Seen); Mucous/LPF 2+ LPF (<2+); RBC/HPF 0-3 HPF (0-3); Squamous Epithelial 0-3 HPF (0-3); WBC/HPF 0-3 HPF (0-3)
[2021-12-13 15:03] LABS: Anion Gap 13 mmol/L (10-20); BUN (Urea Nitrogen) 18 mg/dL (8.4-25.7); Calc. Creatinine Clearance 0 mL/min (70-130); Calcium 9.6 mg/dL (7.8-10.44); Carbon Dioxide 28 mmol/L (23-31); Chloride 104 mmol/L (98-107); Glucose 108 mg/dL (83-110); Potassium 4.9 mmol/L (3.5-5.1); Sodium 140 mmol/L (136-145)
== END 2021-12-13 12:45 | disposition home or self-care (01) ==
LOC: LABBT 12:44
PROVIDERS: ATTEND Urology
DX: Z01.818 Encounter for other preprocedural examination (principal); N40.1 Benign prostatic hyperplasia with lower urinary tract symptoms; R35.1 Nocturia; N52.9 Male erectile dysfunction, unspecified; Q54.9 Hypospadias, unspecified; I48.91 Unspecified atrial fibrillation; R68.89 Other general symptoms and signs; R97.20 Elevated prostate specific antigen [PSA]; Z87.898 Personal history of other specified conditions; Z20.822 Contact with and (suspected) exposure to COVID-19
CPT/HCPCS: 80048; 81001; 85027; 85610; 85730; 87086; 93005; U0003; U0005; 93010

== ENCOUNTER 2021-12-17 05:53 | Day surgery (SDC) | payer MEDICARE, OTHER ==
[2021-12-12 14:51] VITALS: BMI 29.5
[2021-12-17] MEDS ORDERED: Levofloxacin 500 mg/D5W 100 ml Premix Bag ONE (07:05)
[2021-12-17] MEDS ORDERED: fentaNYL Citrate/PF 100 MCG/2 ML SYRINGE ONE (07:30)
[2021-12-17] MEDS ORDERED: B & O ONE (07:58)
[2021-12-17] MEDS ORDERED: Phenazopyridine HCl 100 MG TAB ONE (08:21)
[2021-12-17] MEDS ORDERED: HYDROcodone/Acetaminophen 5/325 mg Tablet ONE (09:07)
== END 2021-12-17 10:10 | disposition home or self-care (01) ==
LOC: SDC 05:53
PROVIDERS: ATTEND Urology
PROC: 0T7D8DZ Dilation of Urethra with Intraluminal Device, Via Natural or Artificial Opening Endoscopic (ICD-10-PCS; principal; 2021-12-17)
DX: N40.1 Benign prostatic hyperplasia with lower urinary tract symptoms (principal); Q54.0 Hypospadias, balanic; N13.8 Other obstructive and reflux uropathy; Z79.01 Long term (current) use of anticoagulants; Z79.899 Other long term (current) drug therapy; Z95.1 Presence of aortocoronary bypass graft; Z90.49 Acquired absence of other specified parts of digestive tract
CPT/HCPCS: C9740; L8699; J1956

== ENCOUNTER 2024-02-27 14:29 | Outpatient (CLI) | payer MEDICARE, OTHER ==
[~2024-02-27 14:29] MED LIST changes: -ISOVUE-370 76%-LOCM 1 ML ONE; +Iopamidol 370 76% 100 ML VIAL ONE
== END 2024-02-27 14:30 | disposition home or self-care (01) ==
LOC: BICCT 14:29
PROVIDERS: ATTEND Nurse Practitioner Adult Health
DX: I71.40 Abdominal aortic aneurysm, without rupture, unspecified (principal); I71.43 Infrarenal abdominal aortic aneurysm, without rupture; I70.90 Unspecified atherosclerosis; K86.2 Cyst of pancreas
CPT/HCPCS: 74175; 82565; Q9967

== ENCOUNTER 2024-05-11 11:59 | Outpatient (CLI) | payer MEDICARE, OTHER ==
[2024-05-11 13:33] LABS: #Basophils 0.06 10x3/uL (0.0-0.2); %Basophils 0.7 % (0.0-1.0); %Eosinophils 3.5 % (0.0-10.0); %Lymphocytes 39.4 % (21.0-51.0); %Monocytes 6.4 % (0.0-10.0); %Neutrophils 49.7 % (42.0-75.0); Hematocrit 47.2 % (42.0-52.0); Hemoglobin 15.3 g/dL (14.0-18.0); Mean Corpuscular HGB CONC 32.4 g/dL (32.0-36.0); Mean Corpuscular Hemoglobin 28.7 pg (27.0-31.0); Mean Corpuscular Volume 88.4 fL (78.0-98.0); Mean Platelet Volume 9.5 fL (7.4-10.4); Platelet Count 328 10x3/uL (130-400); RBC Distribution Width 14.5 % (11.5-14.5); Red Blood Cell (RBC) Count 5.34 mill/uL (4.70-6.10)
[2024-05-11 13:36] LABS: Bacteria/HPF None Seen HPF (None Seen); Bilirubin Negative (Negative); Blood, Urine Negative (Negative); Clarity Clear (Clear); Glucose, Urine (Dipstick) Normal (Negative); Ketone, Urine Negative (Negative); Leukocyte Negative Leu/uL (Negative); Nitrite Negative (Negative); Protein, Urine (Dipstick) Negative (Neg-Trace); RBC/HPF 0-3 HPF (0-3); Specific Gravity, Urine 1.008 (1.002-1.036); Squamous Epithelial None Seen HPF (0-3); Urobilinogen Normal mg/dL (Less than 2); WBC/HPF 0-3 HPF (0-3)
[2024-05-11 13:46] LABS: Anion Gap 8 mmol/L (10-20); BUN (Urea Nitrogen) 12 mg/dL (8.4-25.7); Calc. Creatinine Clearance 0 mL/min (70-130); Calcium 9.6 mg/dL (7.8-10.44); Carbon Dioxide 30 mmol/L (23-31); Chloride 102 mmol/L (98-107); Estimated GFR 76; Glucose 105 mg/dL (83-110); Potassium 4.1 mmol/L (3.5-5.1); Sodium 136 mmol/L (136-145)
== END 2024-05-11 12:00 | disposition home or self-care (01) ==
LOC: LABBT 11:59
PROVIDERS: ATTEND Urology
DX: Z01.818 Encounter for other preprocedural examination (principal)
CPT/HCPCS: 71046; 80048; 81001; 85025; 87086; 93005; 93010

== ENCOUNTER 2024-05-14 09:09 | Outpatient (CLI) | payer MEDICARE, OTHER ==
[2024-05-14 09:54] LABS: Prothrombin Time 13.4 sec (12.0-14.7)
[2024-05-14 09:55] LABS: PTT 36.1 sec (22.9-36.1)
== END 2024-05-14 09:10 | disposition home or self-care (01) ==
LOC: LABBT 09:09
PROVIDERS: ATTEND Urology
DX: Z01.812 Encounter for preprocedural laboratory examination (principal); N40.1 Benign prostatic hyperplasia with lower urinary tract symptoms; R97.20 Elevated prostate specific antigen [PSA]; N52.9 Male erectile dysfunction, unspecified; R35.1 Nocturia; Q54.9 Hypospadias, unspecified; R68.89 Other general symptoms and signs; I48.91 Unspecified atrial fibrillation; Z87.448 Personal history of other diseases of urinary system
CPT/HCPCS: 85610; 85730

== ENCOUNTER 2024-06-02 12:30 | Outpatient (CLI) | payer MEDICARE, OTHER | END 2024-06-02 12:31 | disposition home or self-care (01) | LOC: PET 12:30 | PROVIDERS: ATTEND Urology | DX: C61 Malignant neoplasm of prostate (principal); I71.43 Infrarenal abdominal aortic aneurysm, without rupture | CPT/HCPCS: 78815; A9552; A9595 ==